=== PATIENT | female | born 1955 | race African-American/Black ===

== ENCOUNTER 2016-07-22 10:08 | Outpatient (CLI) | payer MEDICARE, MEDICAID ==
[2016-07-22 10:34] LABS: Hemoglobin A1c 6.3 % (4.0-6.0)
[2016-07-22 10:50] LABS: ALT (SGPT) 13 U/L (0-55); AST (SGOT) 23 U/L (5-34); Albumin 4.3 g/dL (3.4-4.8); Alkaline Phosphatase 90 U/L (40-150); Anion Gap 16 mmol/L (10-20); BUN (Urea Nitrogen) 16 mg/dL (9.8-20.1); Bilirubin, Total 0.6 mg/dL (0.2-1.2); Calc. Creatinine Clearance 0 mL/min (70-130); Calcium 10.2 mg/dL (7.8-10.44); Carbon Dioxide 29 mmol/L (23-31); Cardiac Risk 3.1 (Less than 4.5); Chloride 100 mmol/L (98-107); Cholesterol 162 mg/dL (< 200 Desired); Estimated GFR-MDRD 68; Globulin 3.2 g/dL (2.4-3.5); Glucose 104 mg/dL (80-115); HDL Cholesterol 53 mg/dL (>60 Neg Risk); LDL Cholesterol, Calculated 88 mg/dL; Potassium 3.9 mmol/L (3.5-5.1); Protein, Total 7.5 g/dL (5.8-8.1); Sodium 141 mmol/L (136-145); Triglycerides 104 mg/dL (Less than 150)
== END 2016-07-22 10:09 | disposition home or self-care (01) ==
LOC: MADLABBHPM 10:08
PROVIDERS: ATTEND Family Medicine
DX: E11.9 Type 2 diabetes mellitus without complications (principal); I10 Essential (primary) hypertension
CPT/HCPCS: 36415; 80053; 80061; 83036

== ENCOUNTER 2016-08-16 12:50 | Emergency (ER) | payer MEDICARE, MEDICAID ==
--- NOTE | 2016-08-16 14:24 | RAD ---
FRONTAL RADIOGRAPH CHEST 08/16/2016 COMPARISON: 06/30/2016 and prior. HISTORY: Chest pain for 2 weeks. 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 Question prior surgical change involving the first rib on the right . There is no pneumothorax or pleural fluid and no focal consolidation or alveolar edema. Heart an d mediastinal contours are stable. IMPRESSION: The inferior aspect of the first rib laterally appears truncated as above. This may be on the basis of prior surgical change or projection. Clinical correlation required. No focal consolidation or alveolar edema. POS: ABDIRAHMAN
[2016-08-16 14:27] LABS: #Basophils 0.1 thou/uL (0.0-0.2); #Eosinphils 0.4 thou/uL (0.0-0.7); #Lymphocytes 2.7 thou/uL (1.20-3.40); #Monocytes 0.7 thou/uL (0.11-0.59); #Neutrophils 5.2 thou/uL (1.40-6.50); %Basophils 1.1 % (0.0-1.0); %Eosinophils 4.5 % (0.0-10.0); %Lymphocytes 29.9 % (21.0-51.0); %Neutrophils 56.6 % (42.0-75.0); Hemoglobin 10.9 g/dL (12.0-16.0); MDiff Complete? YES; Mean Corpuscular HGB CONC 30.8 g/dL (32.0-36.0); Mean Corpuscular Hemoglobin 24.9 pg (27.0-31.0); Mean Corpuscular Volume 80.7 fl (81.0-99.0); Mean Platelet Volume 6.9 fL (7.4-10.4); Microcytosis SLIGHT = 6-15 cells (100X) (0-5/hpf); PLT Morphology Comment Appears Adequate; Platelet Count 333 thou/uL (130-400); RBC Distribution Width 14.4 % (11.5-14.5); Red Blood Cell (RBC) Count 4.39 mill/uL (4.20-5.40); White Blood Cell (WBC) Count 9.1 thou/uL (4.8-10.8)
[2016-08-16 14:34] LABS: ALT (SGPT) 11 U/L (0-55); AST (SGOT) 19 U/L (5-34); Albumin 4.2 g/dL (3.4-4.8); Alkaline Phosphatase 84 U/L (40-150); Anion Gap 15 mmol/L (10-20); BUN (Urea Nitrogen) 17 mg/dL (9.8-20.1); Bilirubin, Total 0.4 mg/dL (0.2-1.2); Calc. Creatinine Clearance 0 mL/min (70-130); Calcium 10.3 mg/dL (7.8-10.44); Carbon Dioxide 30 mmol/L (23-31); Chloride 101 mmol/L (98-107); Estimated GFR-MDRD 60; Globulin 3.1 g/dL (2.4-3.5); Glucose 86 mg/dL (80-115); Potassium 3.8 mmol/L (3.5-5.1); Protein, Total 7.3 g/dL (5.8-8.1); Sodium 142 mmol/L (136-145)
--- NOTE | 2016-08-16 17:29 | ERRECORD ---
[facility] EMERGENCY RECORD HPI CHEST PAIN (15:12 ALMO) CHIEF COMPLAINT: Patient presents for evaluation of chest pain, that was present but has now resolved. HISTORIAN: History provided by patient. LOCATION: Symptoms are localized, most severe in the left lower chest, No radiation of pain. QUALITY: Described as similar to previous episodes, tightness, aching. SEVERITY: Maximum severity of symptoms mild, Currently there are no symptoms. TIME COURSE: Gradual onset of symptoms, Symptoms have resolved. ASSOCIATED WITH: No associated chills, Associated with nausea, Associated with shortness of breath. EXACERBATED BY: Patient's condition exacerbated by nothing. RELIEVED BY: Patient's condition relieved by nothing. RISK FACTORS: Coronary artery disease risk factors, include high cholesterol, include hypertension. HEART SCORE: Patients history is Moderately Suspicious (1), Patients ECG has Non specific repolarisation disturbance/LBTB/PM (1), Patients age is greater than 45 and less than 65 (1), Patient has 1 or 2 risk factors (1), Patients Troponin is equal to or less than 1 times the normal limit (0), Total 4. ROS (15:20 ALMO) CONSTITUTIONAL: Historian denies chills. CARDIOVASCULAR: Historian reports chest pain, denies syncope, reports palpitations. RESPIRATORY: Historian reports shortness of breath. GI: Historian reports melena, reports nausea. SKIN: Negative skin review of systems. NEUROLOGIC: Historian denies headache. NOTES: All systems reviewed, negative except as described above. PAST MEDICAL HISTORY (TueAug 16, 2016 12:56 JPER) MEDICAL HISTORY: Notes: VERIFIED 08-16-16, Past medical history includes history of diabetes, Type II, Past medical history includes history of hyperlipidemia, Past medical history includes history of hypertension, Past medical history includes pulmonary disease, chronic obstructive pulmonary disease, possible, ASTHMA. FEMALE SURGICAL HISTORY: VERIFIED 08-16-16, LUMBAR SURGERY, ARM SURGERY, CYST REMOVAL. PSYCHIATRIC HISTORY: Notes: DENIES, Notes: none. SOCIAL HISTORY: Social History includes VERIFIED 08-16-16, Patient denies alcohol use, Patient denies drug use, Patient is a former tobacco user, smoked cigarettes, Patient quit smoking less than 10 years ago. &a-1R&a+25V*p+0X*l5761O*c202B*c15G*c2P*p-0X&a-25V&a+1R Name: Elisa Astudillo : 1955 F61 MedRec: [id number] AcctNum: [id number] Prepared: TueAug 16, 2016 17:27 by Interface Page 1 of 3 pMD [facility] EMERGENCY RECORD KNOWN ALLERGIES STEVEN Inhibitors (Unconfirmed) acetaminophen (Unconfirmed) Darvocet-N 100 (Unconfirmed) Demerol: - Entered brand: Demerol Tab -- Entered brand: Demerol Tab -- Entered brand: Demerol Tab Diovan lisinopril meperidine HCl (Unconfirmed) propoxyphene napsylate (Unconfirmed) valsartan (Unconfirmed) CURRENT MEDICATIONS No recorded medications VITAL SIGNS VITAL SIGNS: BP: 126/67, Pulse: 76, Resp: 17, Temp: 98.5 (Tympanic), O2 sat: 96 on Room Air, Time: 08/16/2016 12:55. (12:55 JPER) BP: 148/69, Pulse: 73, Resp: 18, Temp: 98.5 (Tympanic), O2 sat: 98 on Room Air, Time: 08/16/2016 13:30. (13:30 JPER) BP: 124/43, Pulse: 70, Resp: 16, Temp: 98.5 (Tympanic), O2 sat: 98 on Room Air, Time: 08/16/2016 14:00. (14:00 JPER) BP: 124/47, Pulse: 54, Resp: 16, O2 sat: 100 on Room Air, Time: 08/16/2016 14:30. (14:30 JPER) BP: 147/48, Pulse: 53, Resp: 18, Temp: 98.6 (Tympanic), O2 sat: 100 on Room Air, Time: 08/16/2016 15:00. (15:00 JPER) BP: 126/56, Pulse: 66, Resp: 16, O2 sat: 100 on Room Air, Time: 08/16/2016 15:30. (15:30 JPER) BP: 153/41, Pulse: 68, Resp: 18, O2 sat: 100 on Room Air, Time: 08/16/2016 16:00. (16:00 JPER) BP: 139/43, Pulse: 66, Resp: 18, Temp: 98.6 (Tympanic), O2 sat: 100 on Room Air, Time: 08/16/2016 16:30. (16:30 JPER) BP: 131/56, Pulse: 70, Resp: 16, Temp: 98.6 (Tympanic), O2 sat: 100 on Room Air, Time: 08/16/2016 17:00. (17:00 JPER) PHYSICAL EXAM (15:24 ALMDion) CONSTITUTIONAL: Vital Signs Reviewed. HEAD: Head exam included findings of head atraumatic, normocephalic. EYES: Pupils equally round and reactive to light, Extraocular muscles intact. NECK: Neck exam normal, no carotid bruits, no jugular venous distention. RESPIRATORY CHEST: Respiratory exam included findings of no respiratory distress, Breath sounds clear, Tenderness, moderate, Palpation of chest reproduces symptoms, L CCC 2nd-5th. CARDIOVASCULAR: Heart rate regular rate and rhythm, Heart sounds &a-1R&a+25V*p+0X*i2162B*c202B*c15G*c2P*p-0X&a-25V&a+1R Name: Dilia Astudilloronak Pimentel : 1955 F61 MedRec: [id number] AcctNum: [id number] Prepared: TueAug 16, 2016 17:27 by Interface Page 2 of 3 pMD [facility] EMERGENCY RECORD normal, no murmurs. ABDOMEN FEMALE: Abdominal exam included findings of abdomen nontender, Bowel sounds normal, Liver normal, Spleen normal. BACK: Back exam included findings of normal inspection, range of motion normal. PSYCHIATRIC: Psychiatric exam included findings of patient oriented to person place and time, Normal affect, Judgment normal, Insight normal. PROBLEM LIST No recorded problems DIAGNOSIS (17:24 JPER) FINAL: PRIMARY: CP R/O OK. PRESCRIPTION No recorded prescriptions DISPOSITION (17:24 JPER) PATIENT: Disposition Type: Transfer, Disposition: Transfer to [facility], Patient left the department. Pool: OLIMPIA=MD Jama, Andres JPER=ALAINA Dey, Maia &a-1R&a+25V*p+0X*q0941C*c202B*c15G*c2P*p-0X&a-25V&a+1R Name: Elisa Astudillo : 1955 F61 MedRec: [id number] AcctNum: [id number] Prepared: Gustavo Aug 16, 2016 17:27 by Interface Page 3 of 3 pMD MTDD
--- NOTE | 2016-08-16 17:34 | PICIS ---
[facility] EMERGENCY RECORD COMMUNICATIONS (16:04 AWAT) COMMUNICATIONS: Notes: DR TREVINO AT [facility] ER IN [place] ACCEPTS PT FOR TRANSFER AT THIS TIME. TRIAGE (TueAug 16, 2016 12:56 JPER) PATIENT: NAME: Elisa Astudillo, AGE: 61, GENDER: female, : Tue1955, TIME OF GREET: TueAug 16, 2016 12:51, PREFERRED LANGUAGE: Lithuanian, RACE: Black or , ETHNICITY: Not or , ECODE BILLING MAP: [facility], SSN: [id number], Zip Code: [address], KG WEIGHT: 74.84, PHONE: , , , PERSON ID: [id number], PCP: MD BELL IMELDA. (TueAug 16, 2016 12:56 JPER) COMPLAINT: CHEST PAINS. (TueAug 16, 2016 12:56 JPER) ADMISSION: URGENCY: 3 Urgent, ADMISSION SOURCE: Home, TRANSPORT: Walk-in, BED: TRIAGE. (TueAug 16, 2016 12:56 JPER) ASSESSMENT: Assessment: C/O EPISODES OF CP X 2 WEEKS. (TueAug 16, 2016 12:56 JPER) PAIN: Location NO PAIN AT THIS TIME. (TueAug 16, 2016 12:56 JPER) SIRS SCORING: Heart Rate 55-109 (0), Temp range 96.8-101.1 (0), respiratory rate 12-24 (0), Mental Status altered: no (0). (TueAug 16, 2016 12:56 JPER) TRIAGE SCREENING: Patient denies suicidal ideation, Patient denies presence of domestic violence. (TueAug 16, 2016 12:56 JPER) PROVIDERS: TRIAGE NURSE: Maia Dey RN. (TueAug 16, 2016 12:56 JPER) VITAL SIGNS: BP 126/67, Pulse 76, Resp 17, Temp 98.5, (Tympanic), O2 Sat 96, on Room Air, Time 08/16/2016 12:55. (12:55 JPER) PREVIOUS VISIT ALLERGIES: Darvocet-N 100, Demerol, Diovan, lisinopril. (TueAug 16, 2016 12:56 JPER) KNOWN ALLERGIES STEVEN Inhibitors (Unconfirmed) acetaminophen (Unconfirmed) Darvocet-N 100 (Unconfirmed) Demerol: - Entered brand: Demerol Tab -- Entered brand: Demerol Tab -- Entered brand: Demerol Tab Diovan lisinopril meperidine HCl (Unconfirmed) propoxyphene napsylate (Unconfirmed) valsartan (Unconfirmed) CURRENT MEDICATIONS No recorded medications VITAL SIGNS VITAL SIGNS: BP: 126/67, Pulse: 76, Resp: 17, Temp: 98.5 (Tympanic), O2 sat: 96 on Room Air, Time: 08/16/2016 12:55. (12:55 &a-1R&a+25V*p+0X*n5294A*c202B*c15G*c2P*p-0X&a-25V&a+1R Name: Elisa Astudillo : 1955 F61 MedRec: [id number] AcctNum: [id number] Prepared: TueAug 16, 2016 17:27 by Interface Page 1 of 7 pMD [facility] EMERGENCY RECORD JPER) BP: 148/69, Pulse: 73, Resp: 18, Temp: 98.5 (Tympanic), O2 sat: 98 on Room Air, Time: 08/16/2016 13:30. (13:30 JPER) BP: 124/43, Pulse: 70, Resp: 16, Temp: 98.5 (Tympanic), O2 sat: 98 on Room Air, Time: 08/16/2016 14:00. (14:00 JPER) BP: 124/47, Pulse: 54, Resp: 16, O2 sat: 100 on Room Air, Time: 08/16/2016 14:30. (14:30 JPER) BP: 147/48, Pulse: 53, Resp: 18, Temp: 98.6 (Tympanic), O2 sat: 100 on Room Air, Time: 08/16/2016 15:00. (15:00 JPER) BP: 126/56, Pulse: 66, Resp: 16, O2 sat: 100 on Room Air, Time: 08/16/2016 15:30. (15:30 JPER) BP: 153/41, Pulse: 68, Resp: 18, O2 sat: 100 on Room Air, Time: 08/16/2016 16:00. (16:00 JPER) BP: 139/43, Pulse: 66, Resp: 18, Temp: 98.6 (Tympanic), O2 sat: 100 on Room Air, Time: 08/16/2016 16:30. (16:30 JPER) BP: 131/56, Pulse: 70, Resp: 16, Temp: 98.6 (Tympanic), O2 sat: 100 on Room Air, Time: 08/16/2016 17:00. (17:00 JPER) NURSING ASSESSMENT: CARDIOVASCULAR (13:03 JPER) CONSTITUTIONAL: Patient arrives ambulatory, Gait steady, History obtained from patient, Patient appears comfortable, Patient cooperative, Patient alert, Oriented to person, place and time, Skin warm, Skin dry, Skin normal in color, Mucous membranes pink, Mucous membranes moist, Patient is well-groomed, Patient complains of EPISODES OF CP. PAIN: aching pain, midsternal, PAIN FREE AT THIS TIME. CARDIOVASCULAR: Cardiovascular assessment findings include heart rate normal, Left radial pulse +3(easily palpated, considered normal), Right radial pulse +3(easily palpated, considered normal). RESPIRATORY/CHEST: Lungs auscultated, Breath sounds diminished, to bilateral upper lobes, to bilateral lower lobes, Respiratory assessment findings include respiratory effort easy, Respirations regular, Conversing normally, Neck and chest exam findings include trachea midline, Chest expansion equal, Chest movement symmetrical. NOTES: Emotional support needed and given. NURSING PROCEDURE: ASSISTED MD (13:35 MDEB) ASSISTED MD: Assisted MD with simple procedure, HEMOCULT. NURSING PROCEDURE: IV (17:22 JPER) PATIENT IDENITIFIER: Patient's identity verified by patient stating name, Patient's identity verified by hospital ID bracelet. IV SITE 1: IV established, to the left antecubital, using a 20 gauge catheter, in one attempt, IV site prepped with CHLOROPREP. NURSING PROCEDURE: NURSE NOTES NURSES NOTES: Assistance offered to patient, Patient is awaiting disposition, Patient re-positioned to right side lying position, &a-1R&a+25V*p+0X*l8183Y*c202B*c15G*c2P*p-0X&a-25V&a+1R Name: Elisa Astudillo : 1955 F61 MedRec: [id number] AcctNum: [id number] Prepared: TueAug 16, 2016 17:27 by Interface Page 2 of 7 pMD [facility] EMERGENCY RECORD Notes: PT CONT PREVIOUSLY; CONT WITHOUT PAIN AT THIS TIME; PT IN NAD; VSS. (14:00 JPER) Notes: WAITING DISPOSITION. (15:00 JPER) Notes: CONT PREVIOUSLY; NAD. (16:43 JPER) NURSING PROCEDURE: TRANSFER (17:14 JPER) TRANSFER: Reason for transfer need for specialized care, Diagnosis: CP R/O TN, Accepting institution: [facility], Accepting physician: BELINDA, Referring physician: JAMA, Report called to receiving facility, PRABHA RN, Provided opportunity to answer questions, Summary of Care printed, Copy of patient record prepared for receiving facility, Copy of diagnostic studies, Status of patient's valuables documented on chart, Medication reconciliation form prepared and sent to receiving facility, Patient consent for transfer signed, Patient given appropriate sedation for safe transport. BELONGINGS: Belongings remain with patient, Valuables remain with patient. EQUIPMENT WITH PATIENT: Equipment with patient at time of transfer radiation monitor, Saline lock intact and patent at time of transfer. NOTES: Emotional support needed and given, Patient tolerated procedure well. ORDER DETAILS Order Name: CBC with Differential, Status: Active, Time: 13:46 08/16/2016, User: OLIMPIA, - Ordered for: MD Yun Alberto, - Entered by: MD Yun Alberto - TueAug 16, 2016 13:46, - Quantity: 1, Order Name: Comprehensive Metabolic Panel, Status: Active, Time: 13:46 08/16/2016, User: OLIMPIA, - Ordered for: MD Yun Alberto, - Entered by: MD Yun Alberto - TueAug 16, 2016 13:46, - Quantity: 1, Order Name: Troponin - I, Status: Active, Time: 13:47 08/16/2016, User: OLIMPIA, - Ordered for: MD Yun Alberto, - Entered by: MD Yun Alberto - TueAug 16, 2016 13:47, - Quantity: 1, Order Name: XR Chest 1 View Portable, Status: Active, Time: 13:46 08/16/2016, User: OLIMPIA, - Ordered for: MD Yun Alberto, - Entered by: MD Yun Alberto - TueAug 16, 2016 13:46, - Quantity: 1. HPI CHEST PAIN (15:12 ALMO) CHIEF COMPLAINT: Patient presents for evaluation of chest pain, that was present but has now resolved. &a-1R&a+25V*p+0X*k1077F*c202B*c15G*c2P*p-0X&a-25V&a+1R Name: Elisa Astudillo : 1955 F61 MedRec: [id number] AcctNum: [id number] Prepared: TueAug 16, 2016 17:27 by Interface Page 3 of 7 pMD [facility] EMERGENCY RECORD HISTORIAN: History provided by patient. LOCATION: Symptoms are localized, most severe in the left lower chest, No radiation of pain. QUALITY: Described as similar to previous episodes, tightness, aching. SEVERITY: Maximum severity of symptoms mild, Currently there are no symptoms. TIME COURSE: Gradual onset of symptoms, Symptoms have resolved. ASSOCIATED WITH: No associated chills, Associated with nausea, Associated with shortness of breath. EXACERBATED BY: Patient's condition exacerbated by nothing. RELIEVED BY: Patient's condition relieved by nothing. RISK FACTORS: Coronary artery disease risk factors, include high cholesterol, include hypertension. HEART SCORE: Patients history is Moderately Suspicious (1), Patients ECG has Non specific repolarisation disturbance/LBTB/PM (1), Patients age is greater than 45 and less than 65 (1), Patient has 1 or 2 risk factors (1), Patients Troponin is equal to or less than 1 times the normal limit (0), Total 4. ROS (15:20 ALMO) CONSTITUTIONAL: Historian denies chills. CARDIOVASCULAR: Historian reports chest pain, denies syncope, reports palpitations. RESPIRATORY: Historian reports shortness of breath. GI: Historian reports melena, reports nausea. SKIN: Negative skin review of systems. NEUROLOGIC: Historian denies headache. NOTES: All systems reviewed, negative except as described above. PAST MEDICAL HISTORY (TueAug 16, 2016 12:56 JPER) MEDICAL HISTORY: Notes: VERIFIED 08-16-16, Past medical history includes history of diabetes, Type II, Past medical history includes history of hyperlipidemia, Past medical history includes history of hypertension, Past medical history includes pulmonary disease, chronic obstructive pulmonary disease, possible, ASTHMA. FEMALE SURGICAL HISTORY: VERIFIED 08-16-16, LUMBAR SURGERY, ARM SURGERY, CYST REMOVAL. PSYCHIATRIC HISTORY: Notes: DENIES, Notes: none. SOCIAL HISTORY: Social History includes VERIFIED 08-16-16, Patient denies alcohol use, Patient denies drug use, Patient is a former tobacco user, smoked cigarettes, Patient quit smoking less than 10 years ago. PHYSICAL EXAM (15:24 ALMO) CONSTITUTIONAL: Vital Signs Reviewed. &a-1R&a+25V*p+0X*g1701L*c202B*c15G*c2P*p-0X&a-25V&a+1R Name: Elisa Astudillo : 1955 F61 MedRec: [id number] AcctNum: [id number] Prepared: TueAug 16, 2016 17:27 by Interface Page 4 of 7 D [facility] EMERGENCY RECORD HEAD: Head exam included findings of head atraumatic, normocephalic. EYES: Pupils equally round and reactive to light, Extraocular muscles intact. NECK: Neck exam normal, no carotid bruits, no jugular venous distention. RESPIRATORY CHEST: Respiratory exam included findings of no respiratory distress, Breath sounds clear, Tenderness, moderate, Palpation of chest reproduces symptoms, L CCC 2nd-5th. CARDIOVASCULAR: Heart rate regular rate and rhythm, Heart sounds normal, no murmurs. ABDOMEN FEMALE: Abdominal exam included findings of abdomen nontender, Bowel sounds normal, Liver normal, Spleen normal. BACK: Back exam included findings of normal inspection, range of motion normal. PSYCHIATRIC: Psychiatric exam included findings of patient oriented to person place and time, Normal affect, Judgment normal, Insight normal. EVENTS TRANSFER: Triage to Emergency Triage. (12:56 JPER) Emergency Triage to Main ED -01. (12:57 JPER) Removed from Emergency Main ED -01. (17:24 JPER) PROBLEM LIST No recorded problems DIAGNOSIS (17:24 JPER) FINAL: PRIMARY: CP R/O TN. DISPOSITION (17:24 JPER) PATIENT: Disposition Type: Transfer, Disposition: Transfer to [facility], Patient left the department. PRESCRIPTION No recorded prescriptions IMAGING *EKG: Image captured from scanner. (14:33 JPAR) *MEMORANDUM OF TRANSFER: Image captured from scanner. (16:16 AWAT) EMS TRANSPORT ORDERS: Image captured from scanner. (16:16 AWAT) CONSENTS: Image captured from scanner. (16:16 AWAT) SBARU: Image captured from scanner. (17:21 JPER) RESULTS (16:19 AWAT) LABORATORY: Troponin - I Collection DT: TueAug 16, 2016 14:12, Troponin I 0.015 ng/mL, Range (< 0.028), Reference Range &a-1R&a+25V*p+0X*z0432Q*c202B*c15G*c2P*p-0X&a-25V&a+1R Name: Elisa Astudillo : 1955 F61 MedRec: [id number] AcctNum: [id number] Prepared: TueAug 16, 2016 17:27 by Interface Page 5 of 7 pMD [facility] EMERGENCY RECORD , 0.00 - 0.028 ng/mL Negative 0.029 - 0.29 ng/mL , Indeterminate Greater or Equal to 0.3 ng/mL Strongly suggests TN , . Comprehensive Metabolic Panel Collection DT: TueAug 16, 2016 14:12, Sodium 142 mmol/L, Range (136-145), Potassium 3.8 mmol/L, Range (3.5-5.1), Chloride 101 mmol/L, Range (98-107), Carbon Dioxide 30 mmol/L, Range (23-31), Anion Gap 15 mmol/L, Range (10-20), BUN (Urea Nitrogen) 17 mg/dL, Range (9.8-20.1), *Creatinine 1.12 - H mg/dL, Range (0.6-1.1), Estimated GFR-MDRD 60 , Reference Range for Estimated GFR: Greater than 90, mL/min/1.73 m2 NOTE: The MDRD equation has not been validated for use, with the elderly (over 70 years of age), women, patients with, serious comorbid condition or persons with extremes of body size, muscle, mass, or nutritional status. , Glucose 86 mg/dL, Range (80-115), Calcium 10.3 mg/dL, Range (7.8-10.44), Bilirubin, Total 0.4 mg/dL, Range (0.2-1.2), Protein, Total 7.3 g/dL, Range (5.8-8.1), NOTE: Plasma values are generally 0.3 to 0.5 g/dL higher than serum values, due to the presence of fibrinogen. , Albumin 4.2 g/dL, Range (3.4-4.8), Globulin 3.1 g/dL, Range (2.4-3.5), Alb/Glob Ratio 1.4 g/dL, Range (1.2-2.2), Alkaline Phosphatase 84 U/L, Range (40-150), AST (SGOT) 19 U/L, Range (5-34), ALT (SGPT) 11 U/L, Range (0-55). CBC with Differential Collection DT: TueAug 16, 2016 14:12, White Blood Cell (WBC) Count 9.1 thou/uL, Range (4.8-10.8), Red Blood Cell (RBC) Count 4.39 mill/uL, Range (4.20-5.40), *Hemoglobin 10.9 - L g/dL, Range (12.0-16.0), *Hematocrit 35.4 - L %, Range (36.0-47.0), *Mean Corpuscular Volume 80.7 - L fl, Range (81.0-99.0), *Mean Corpuscular Hemoglobin 24.9 - L pg, Range (27.0-31.0), *Mean Corpuscular HGB CONC 30.8 - L g/dL, Range (32.0-36.0), RBC Distribution Width 14.4 %, Range (11.5-14.5), Platelet Count 333 thou/uL, Range (130-400), *Mean Platelet Volume 6.9 - L fL, Range (7.4-10.4), %Neutrophils 56.6 %, Range (42.0-75.0), %Lymphocytes 29.9 %, Range (21.0-51.0), %Monocytes 8.0 %, Range (0.0-10.0), %Eosinophils 4.5 %, Range (0.0-10.0), *%Basophils 1.1 - H %, Range (0.0-1.0), &a-1R&a+25V*p+0X*a4776X*c202B*c15G*c2P*p-0X&a-25V&a+1R Name: Elisa Astudillo : 1955 F61 MedRec: [id number] AcctNum: [id number] Prepared: TueAug 16, 2016 17:27 by Interface Page 6 of 7 pMD [facility] EMERGENCY RECORD #Neutrophils 5.2 thou/uL, Range (1.40-6.50), #Lymphocytes 2.7 thou/uL, Range (1.20-3.40), *#Monocytes 0.7 - H thou/uL, Range (0.11-0.59), #Eosinphils 0.4 thou/uL, Range (0.0-0.7), #Basophils 0.1 thou/uL, Range (0.0-0.2), Microcytosis SLIGHT = 6-15 cells (100X), Range (0-5/hpf), PLT Morphology Comment Appears Adequate . Pool: OLIMPIA=MD Jama, Andres PACHECO=ALAINA Escalera, Martin HINDS=MELI De La Cruz Julia JPER=ALAINA Dey, Maia SOTOMAYOR=ALAINA Castillo, Eileen &a-1R&a+25V*p+0X*u0415C*c202B*c15G*c2P*p-0X&a-25V&a+1R Name: Elisa Astudillo : 1955 F61 MedRec: [id number] AcctNum: [id number] Prepared: TueAug 16, 2016 17:27 by Interface Page 7 of 7 pMD MTDD
== END 2016-08-16 17:13 | disposition short-term general hospital (02) ==
LOC: MADERS 12:50
DX: R07.9 Chest pain, unspecified (principal); E11.9 Type 2 diabetes mellitus without complications; E78.5 Hyperlipidemia, unspecified; I10 Essential (primary) hypertension; J44.9 Chronic obstructive pulmonary disease, unspecified; Z87.891 Personal history of nicotine dependence
CPT/HCPCS: 36415; 71010; 80053; 84484; 85025; 99285

== ENCOUNTER 2016-11-22 10:27 | Outpatient (CLI) | payer MEDICARE, MEDICAID ==
[2016-11-22 11:02] LABS: #Basophils 0.1 thou/uL (0.0-0.2); #Eosinphils 0.4 thou/uL (0.0-0.7); #Lymphocytes 2.3 thou/uL (1.20-3.40); #Monocytes 0.6 thou/uL (0.11-0.59); #Neutrophils 5.2 thou/uL (1.40-6.50); %Basophils 1.2 % (0.0-1.0); %Eosinophils 4.3 % (0.0-10.0); %Lymphocytes 27.2 % (21.0-51.0); %Monocytes 7.1 % (0.0-10.0); %Neutrophils 60.2 % (42.0-75.0); Hemoglobin 12.5 g/dL (12.0-16.0); Mean Corpuscular HGB CONC 31.3 g/dL (32.0-36.0); Mean Corpuscular Hemoglobin 26.2 pg (27.0-31.0); Mean Corpuscular Volume 83.7 fl (81.0-99.0); Mean Platelet Volume 7.4 fL (7.4-10.4); Platelet Count 236 thou/uL (130-400); RBC Distribution Width 17.9 % (11.5-14.5); Red Blood Cell (RBC) Count 4.79 mill/uL (4.20-5.40); White Blood Cell (WBC) Count 8.6 thou/uL (4.8-10.8)
[2016-11-22 11:03] LABS: Hemoglobin A1c 6.3 % (4.0-6.0)
[2016-11-22 11:13] LABS: ALT (SGPT) 11 U/L (8-55); AST (SGOT) 17 U/L (5-34); Albumin 4.1 g/dL (3.4-4.8); Alkaline Phosphatase 93 U/L (40-150); Anion Gap 16 mmol/L (10-20); BUN (Urea Nitrogen) 18 mg/dL (9.8-20.1); Bilirubin, Total 0.3 mg/dL (0.2-1.2); Calc. Creatinine Clearance 0 mL/min (70-130); Carbon Dioxide 27 mmol/L (23-31); Chloride 101 mmol/L (98-107); Estimated GFR-MDRD 76; Globulin 3.2 g/dL (2.4-3.5); Glucose 104 mg/dL (80-115); Protein, Total 7.3 g/dL (5.8-8.1); Sodium 140 mmol/L (136-145)
[2016-11-22 17:54] LABS: Iron 44 ug/dL (50-170)
== END 2016-11-22 10:28 | disposition home or self-care (01) ==
LOC: MADLABBHPM 10:27
PROVIDERS: ATTEND Family Medicine
DX: E11.9 Type 2 diabetes mellitus without complications (principal); D64.9 Anemia, unspecified; N18.2 Chronic kidney disease, stage 2 (mild)
CPT/HCPCS: 36415; 80053; 82728; 83036; 83540; 85025

== ENCOUNTER 2016-11-23 11:54 | Outpatient (CLI) | payer MEDICARE, MEDICAID ==
[2016-11-23] MEDS ORDERED: Iopamidol 370 76% 100 ML VIAL ONE (14:00)
--- NOTE | 2016-11-23 15:57 | CT ---
CT OF THE ABDOMEN AND PELVIS WITH IV CONTRAST 11/23/16 PROVIDED CLINICAL HISTORY: Abdominal distention. TECHNIQUE: CT data was acquired through the abdomen and pelvis after the administration of IV and enteric contr ast material. FINDINGS: No comparisons. The visualized lung bases are free of significant opacity. There is a 2.1 cm right adrenal mass present. The Hounsfield units of which are not compatible with a lipid rich adrenal adenoma. The liver, spleen, pancreas, kidneys and left adrenal gland appear normal. Vascular calcifications are noted involving the abdominal aorta and its branches. There is a 2.5 cm maximal dimension ectasia of the intrarenal abdominal aorta. There is sigmoid colonic diverticulosis. There is a small amount of nonspecific free pelvic fluid. N o overt inflammatory fat stranding is seen. heterogeneous soft tissue density with internal calcific ations noted involving the low pelvis presumably reflecting fibroid changes of the uterus, not optim ally evaluated via CT. There is no bowel obstruction evident. There is no free intraperitoneal air or lymph node enlargemen t. The osseous structures demonstrate no concerning osteoblastic or osteolytic lesions. Postoperative changes are seen involving the pelvis and lower lumbar spine. IMPRESSION: 1. Indeterminate 2.1 cm right adrenal lesion. Correlation with a CT examination of the abdomen with and without IV contrast utilizing adrenal adenoma washout protocol is recommended for further e valuation. 2. Sigmoid colonic diverticulosis with a small amount of free pelvic fluid that could reflect c hanges of mild diverticulitis. The etiology and significance of this fluid is not completely certain however. 3. Atherosclerotic vascular calcification and ectasia of the infrarenal abdominal aorta as desc ribed above. POS: OFF
== END 2016-11-23 11:55 | disposition home or self-care (01) ==
LOC: MADCT 11:54
PROVIDERS: ATTEND Family Medicine
DX: R14.0 Abdominal distension (gaseous) (principal); I77.811 Abdominal aortic ectasia; K57.30 Diverticulosis of large intestine without perforation or abscess without bleeding
CPT/HCPCS: 74177

== ENCOUNTER 2017-01-03 09:42 | Outpatient (CLI) | payer MEDICARE, MEDICAID ==
[2017-01-03 10:23] LABS: #Basophils 0.2 thou/uL (0.0-0.2); #Eosinphils 0.5 thou/uL (0.0-0.7); #Monocytes 0.7 thou/uL (0.11-0.59); #Neutrophils 5.4 thou/uL (1.40-6.50); %Basophils 1.5 % (0.0-1.0); %Eosinophils 4.2 % (0.0-10.0); %Lymphocytes 42.3 % (21.0-51.0); %Monocytes 6.3 % (0.0-10.0); %Neutrophils 45.7 % (42.0-75.0); Hemoglobin 14.2 g/dL (12.0-16.0); Mean Corpuscular HGB CONC 31.7 g/dL (32.0-36.0); Mean Corpuscular Hemoglobin 26.9 pg (27.0-31.0); Mean Platelet Volume 7.4 fL (7.4-10.4); Platelet Count 276 thou/uL (130-400); RBC Distribution Width 16.1 % (11.5-14.5); Red Blood Cell (RBC) Count 5.29 mill/uL (4.20-5.40); White Blood Cell (WBC) Count 11.9 thou/uL (4.8-10.8)
[2017-01-03 10:27] LABS: Hemoglobin A1c 6.3 % (4.0-6.0)
[2017-01-03 10:31] LABS: ALT (SGPT) 12 U/L (8-55); AST (SGOT) 22 U/L (5-34); Albumin 4.4 g/dL (3.4-4.8); Alkaline Phosphatase 94 U/L (40-150); Anion Gap 17 mmol/L (10-20); BUN (Urea Nitrogen) 13 mg/dL (9.8-20.1); Bilirubin, Total 0.5 mg/dL (0.2-1.2); Calc. Creatinine Clearance 0 mL/min (70-130); Calcium 9.9 mg/dL (7.8-10.44); Carbon Dioxide 25 mmol/L (23-31); Chloride 102 mmol/L (98-107); Estimated GFR-MDRD 63; Globulin 3.8 g/dL (2.4-3.5); Glucose 113 mg/dL (80-115); Potassium 3.7 mmol/L (3.5-5.1); Protein, Total 8.2 g/dL (6.0-8.3); Sodium 140 mmol/L (136-145)
--- NOTE | 2017-01-03 11:42 | ULT ---
COMPLETE ABDOMINAL ULTRASOUND: COMPARISON: None. HISTORY: Abdominal pain and cramping after eating for 1 month. TECHNIQUE: Multiplanar, galeano scale, and color Doppler images were obtained in a complete abdominal ultrasound. FINDINGS: The liver is normal in echogenicity without focal lesions or intrahepatic ductal dilatation. The ga llbladder is normal without stones, sludge, gallbladder wall thickening, or pericholecystic fluid. The common bile duct is normal measuring 3 mm. The aorta and inferior vena cava are normal in caliber. The visualized portions of the pancreas are unremarkable. The spleen is normal in echogenicity without focal lesions and measures 6.9 cm in le ngth. Both kidneys are normal in echogenicity without hydronephrosis or calculi and measure 11.2 and 9.4 c m in length on the right and left, respectively. IMPRESSION: Unremarkable exam. POS: RASHMI
[2017-01-03 17:42] LABS: Iron 52 ug/dL (50-170)
== END 2017-01-03 09:43 | disposition home or self-care (01) ==
LOC: MADLABBHPM 09:42
PROVIDERS: ATTEND Family Medicine
DX: E11.9 Type 2 diabetes mellitus without complications (principal); E61.1 Iron deficiency; D25.9 Leiomyoma of uterus, unspecified; E27.9 Disorder of adrenal gland, unspecified; I70.0 Atherosclerosis of aorta
CPT/HCPCS: 36415; 76700; 80053; 83036; 83540; 85025

== ENCOUNTER 2017-05-01 19:36 | Emergency (ER) | payer MEDICARE, MEDICAID ==
[2017-05-01] MEDS ORDERED: Naproxen 500 MG TAB ONE (21:11)
[2017-05-01] MEDS ORDERED: HYDROcodone/Acetaminophen 10/325 mg Tablet ONE (21:11)
[2017-05-01] MEDS ORDERED: Diazepam 5 MG TAB ONE (21:11)
--- NOTE | 2017-05-01 21:17 | RAD ---
RADIOGRAPH RIGHT LEG TIBIA AND FIBULA: History: 62-year-old female with acute right leg pain from fall. FINDINGS: No fracture of the tibia or fibula is identified. IMPRESSION: Negative. POS: RASHMI
--- NOTE | 2017-05-01 21:18 | RAD ---
RADIOGRAPH RIGHT KNEE FOUR VIEWS: History: 62-year-old female with acute traumatic right knee pain due to fall. FINDINGS: There is a small joint effusion. No fracture or dislocation. Tiny marginal osteophytes without signi ficant joint space narrowing. IMPRESSION: No fracture. POS: [facility]
--- NOTE | 2017-05-01 21:18 | RAD ---
RADIOGRAPH RIGHT HIP TWO VIEWS: History: 62-year-old female with acute traumatic right hip pain due to fall. FINDINGS: No fracture or dislocation. Femoral head contour is maintained. Hip joint space is maintained. No douglass bcapital osteophytes. IMPRESSION: Negative. POS: [facility]
--- NOTE | 2017-05-01 21:19 | RAD ---
RADIOGRAPH RIGHT SHOULDER THREE VIEWS: History: 62-year-old female with acute traumatic right shoulder pain from fall. FINDINGS: No fracture or dislocation. Moderate DJD at AC joint. Mild to moderate DJD at glenohumeral joint. IMPRESSION: 1. No fracture. 2. osteoarthrosis of right shoulder. POS: [facility]
== END 2017-05-01 21:31 | disposition home or self-care (01) ==
LOC: MADERS 19:36
DX: S40.011A Contusion of right shoulder, initial encounter (principal); S70.01XA Contusion of right hip, initial encounter; S80.01XA Contusion of right knee, initial encounter; S90.01XA Contusion of right ankle, initial encounter; E78.5 Hyperlipidemia, unspecified; E11.9 Type 2 diabetes mellitus without complications; I10 Essential (primary) hypertension; J45.909 Unspecified asthma, uncomplicated; J44.9 Chronic obstructive pulmonary disease, unspecified; Z87.891 Personal history of nicotine dependence; E78.1 Pure hyperglyceridemia; Z79.899 Other long term (current) drug therapy; Z79.84 Long term (current) use of oral hypoglycemic drugs; W19.XXXA Unspecified fall, initial encounter

== ENCOUNTER 2017-05-23 07:42 | Emergency (ER) | payer MEDICARE, MEDICAID ==
[2017-05-23] MEDS ORDERED: methylPREDNISolone Sod Succ/PF 125 MG/2 ML VIAL ONE (08:03)
[2017-05-23] MEDS ORDERED: Dexamethasone 10 MG/ML VIAL ONE (08:03)
[2017-05-23] MEDS ORDERED: diphenhydrAMINE 50 MG/ML VIAL ONE (08:03)
[2017-05-23] MEDS ORDERED: Sodium Chloride 0.9% 1,000 ML BAG ONE (08:09)
== END 2017-05-23 10:00 | disposition home or self-care (01) ==
LOC: MADERS 07:42
DX: T78.40XA Allergy, unspecified, initial encounter (principal); E11.9 Type 2 diabetes mellitus without complications; E78.2 Mixed hyperlipidemia; I10 Essential (primary) hypertension; J44.9 Chronic obstructive pulmonary disease, unspecified; Z87.891 Personal history of nicotine dependence; Z79.82 Long term (current) use of aspirin; Z79.84 Long term (current) use of oral hypoglycemic drugs; Z79.899 Other long term (current) drug therapy
CPT/HCPCS: 96374; 96375; J1100; J1200; J2930; J7050; J7620

== ENCOUNTER 2017-05-25 02:21 | Emergency (ER) | payer MEDICARE, MEDICAID ==
[2017-05-25] MEDS ORDERED: Dexamethasone 4 MG TAB ONE (02:42)
[2017-05-25] MEDS ORDERED: Famotidine 20 MG TAB ONE (02:42)
== END 2017-05-25 03:04 | disposition home or self-care (01) ==
LOC: MADERS 02:21
DX: J30.81 Allergic rhinitis due to animal (cat) (dog) hair and dander (principal); E11.9 Type 2 diabetes mellitus without complications; E78.5 Hyperlipidemia, unspecified; I10 Essential (primary) hypertension; J44.9 Chronic obstructive pulmonary disease, unspecified; Z87.891 Personal history of nicotine dependence
CPT/HCPCS: 99283; J8540

== ENCOUNTER 2017-05-28 09:03 | Emergency (ER) | payer MEDICARE, OTHER ==
[2017-05-28] MEDS ORDERED: diphenhydrAMINE 25 MG CAP ONE (09:38)
[2017-05-28] MEDS ORDERED: Dexamethasone 4 mg/ml Vial ONE (09:38)
[2017-05-28] MEDS ORDERED: Famotidine 20 MG TAB ONE (09:39)
== END 2017-05-28 11:00 | disposition home or self-care (01) ==
LOC: MADERS 09:03
DX: T78.40XA Allergy, unspecified, initial encounter (principal); E11.9 Type 2 diabetes mellitus without complications; E78.5 Hyperlipidemia, unspecified; I10 Essential (primary) hypertension; J44.9 Chronic obstructive pulmonary disease, unspecified; Z87.891 Personal history of nicotine dependence; Z79.899 Other long term (current) drug therapy
CPT/HCPCS: 99283; J1100

== ENCOUNTER 2017-08-02 15:07 | Emergency (ER) | payer MEDICARE, MEDICAID | END 2017-08-02 15:57 | disposition home or self-care (01) | LOC: MADERS 15:07 | DX: I10 Essential (primary) hypertension (principal); E11.9 Type 2 diabetes mellitus without complications; E78.5 Hyperlipidemia, unspecified; J44.9 Chronic obstructive pulmonary disease, unspecified; F17.210 Nicotine dependence, cigarettes, uncomplicated; Z79.891 Long term (current) use of opiate analgesic; Z79.82 Long term (current) use of aspirin; Z79.899 Other long term (current) drug therapy; Z79.84 Long term (current) use of oral hypoglycemic drugs | CPT/HCPCS: 99283 ==

== ENCOUNTER 2017-08-04 07:48 | Outpatient (CLI) | payer MEDICARE, OTHER ==
[2017-08-04 08:44] LABS: #Basophils 0.1 thou/uL (0.0-0.2); #Eosinphils 0.5 thou/uL (0.0-0.7); #Monocytes 0.7 thou/uL (0.11-0.59); #Neutrophils 7.3 thou/uL (1.40-6.50); %Basophils 1.1 % (0.0-1.0); %Eosinophils 3.9 % (0.0-10.0); %Monocytes 6.1 % (0.0-10.0); %Neutrophils 62.8 % (42.0-75.0); Hemoglobin 12.4 g/dL (12.0-16.0); Mean Corpuscular HGB CONC 30.8 g/dL (32.0-36.0); Mean Corpuscular Volume 87.8 fl (81.0-99.0); Mean Platelet Volume 7.8 fL (7.4-10.4); Platelet Count 299 thou/uL (130-400); RBC Distribution Width 15.3 % (11.5-14.5); White Blood Cell (WBC) Count 11.6 thou/uL (4.8-10.8)
[2017-08-04 09:05] LABS: ALT (SGPT) 9 U/L (8-55); AST (SGOT) 16 U/L (5-34); Alkaline Phosphatase 103 U/L (40-150); Anion Gap 15 mmol/L (10-20); BUN (Urea Nitrogen) 11 mg/dL (9.8-20.1); Bilirubin, Total 0.5 mg/dL (0.2-1.2); Calc. Creatinine Clearance 0 mL/min (70-130); Calcium 9.9 mg/dL (7.8-10.44); Carbon Dioxide 29 mmol/L (23-31); Chloride 102 mmol/L (98-107); Estimated GFR-MDRD 71; Globulin 3.4 g/dL (2.4-3.5); Glucose 105 mg/dL (80-115); Lipase 19 U/L (8-78); Potassium 3.7 mmol/L (3.5-5.1); Protein, Total 7.4 g/dL (6.0-8.3); Sodium 142 mmol/L (136-145)
--- NOTE | 2017-08-04 09:11 | ULT ---
ULTRASOUND ABDOMEN: HISTORY: Right upper quadrant pain for 1 month. COMPARISON: None. FINDINGS: The pancreas is unremarkable. The aorta and IVC are unremarkable. Hepatic echotexture is normal. Common bile duct is normal. The gallbladder is normal. The right kidney measures 10.2 x 3.5 x 5 cm without mass, hydronephrosis, or abnormal calcifications. IMPRESSION: Normal exam. No cholelithiasis or acute cholecystitis. POS: [facility]
== END 2017-08-04 07:49 | disposition home or self-care (01) ==
LOC: MADLABBHPM 07:48
PROVIDERS: ATTEND Family Medicine
DX: R10.13 Epigastric pain (principal); R10.11 Right upper quadrant pain; R63.0 Anorexia; E11.9 Type 2 diabetes mellitus without complications
CPT/HCPCS: 36415; 76705; 80053; 82150; 83036; 83690; 85025; 87338

== ENCOUNTER 2017-10-14 11:00 | Emergency (ER) | payer MEDICARE, MEDICAID ==
[2017-10-14] MEDS ORDERED: cloNIDine 0.1 MG TAB ONE (11:48)
[2017-10-14 12:04] LABS: #Basophils 0.1 thou/uL (0.0-0.2); #Eosinphils 0.5 thou/uL (0.0-0.7); #Lymphocytes 2.8 thou/uL (1.20-3.40); #Monocytes 0.6 thou/uL (0.11-0.59); #Neutrophils 5.7 thou/uL (1.40-6.50); %Basophils 1.3 % (0.0-1.0); %Eosinophils 5.5 % (0.0-10.0); %Lymphocytes 28.8 % (21.0-51.0); %Monocytes 6.1 % (0.0-10.0); %Neutrophils 58.4 % (42.0-75.0); Hemoglobin 11.4 g/dL (12.0-16.0); Mean Corpuscular HGB CONC 31.4 g/dL (32.0-36.0); Mean Corpuscular Volume 82.7 fl (81.0-99.0); Platelet Count 280 thou/uL (130-400); RBC Distribution Width 15.6 % (11.5-14.5); Red Blood Cell (RBC) Count 4.39 mill/uL (4.20-5.40); White Blood Cell (WBC) Count 9.8 thou/uL (4.8-10.8)
[2017-10-14 12:23] LABS: ALT (SGPT) 10 U/L (8-55); AST (SGOT) 21 U/L (5-34); Albumin 4.2 g/dL (3.4-4.8); Alkaline Phosphatase 103 U/L (40-150); Anion Gap 18 mmol/L (10-20); BUN (Urea Nitrogen) 11 mg/dL (9.8-20.1); Bilirubin, Total 0.4 mg/dL (0.2-1.2); CK (CPK) 191 U/L (29-168); Calc. Creatinine Clearance 0 mL/min (70-130); Calcium 9.9 mg/dL (7.8-10.44); Carbon Dioxide 24 mmol/L (23-31); Chloride 105 mmol/L (98-107); Estimated GFR-MDRD 68; Globulin 2.9 g/dL (2.4-3.5); Glucose 91 mg/dL (80-115); Potassium 3.8 mmol/L (3.5-5.1); Protein, Total 7.1 g/dL (6.0-8.3); Sodium 143 mmol/L (136-145)
[2017-10-14 12:24] LABS: Troponin I Less than 0.010 ng/mL (< 0.028)
== END 2017-10-14 14:27 | disposition short-term general hospital (02) ==
LOC: MADERS 11:00
DX: R00.1 Bradycardia, unspecified (principal); E11.9 Type 2 diabetes mellitus without complications; E78.5 Hyperlipidemia, unspecified; E78.2 Mixed hyperlipidemia; I10 Essential (primary) hypertension; J44.9 Chronic obstructive pulmonary disease, unspecified; F17.210 Nicotine dependence, cigarettes, uncomplicated; Z79.84 Long term (current) use of oral hypoglycemic drugs; Z79.899 Other long term (current) drug therapy
CPT/HCPCS: 80053; 82550; 82553; 83880; 84484; 85025; 93005

== ENCOUNTER 2017-11-14 10:35 | Emergency (ER) | payer MEDICARE, OTHER | END 2017-11-14 11:00 | disposition home or self-care (01) | LOC: MADERS 10:35 | DX: M79.89 Other specified soft tissue disorders (principal); R22.0 Localized swelling, mass and lump, head; E11.9 Type 2 diabetes mellitus without complications; E78.2 Mixed hyperlipidemia; I10 Essential (primary) hypertension; J44.9 Chronic obstructive pulmonary disease, unspecified; F17.210 Nicotine dependence, cigarettes, uncomplicated; Z79.84 Long term (current) use of oral hypoglycemic drugs; Z79.82 Long term (current) use of aspirin; Z79.899 Other long term (current) drug therapy | CPT/HCPCS: 99282 ==

== ENCOUNTER 2017-12-06 18:59 | Emergency (ER) | payer MEDICARE, OTHER ==
[2017-12-06] MEDS ORDERED: Morphine 10 MG/ML VIAL ONE (19:17)
[2017-12-06] MEDS ORDERED: Nitroglycerin 2% Ointment 1 INCH/1 GM Packet ONE (19:18)
[2017-12-06] MEDS ORDERED: Metoprolol Tartrate 5 MG/5 ML VIAL ONE (19:19)
[2017-12-06 19:30] LABS: #Basophils 0.1 thou/uL (0.0-0.2); #Eosinphils 0.6 thou/uL (0.0-0.7); #Lymphocytes 3.8 thou/uL (1.20-3.40); #Monocytes 0.9 thou/uL (0.11-0.59); #Neutrophils 5.2 thou/uL (1.40-6.50); %Basophils 0.9 % (0.0-1.0); %Eosinophils 5.8 % (0.0-10.0); %Monocytes 8.3 % (0.0-10.0); Anisocytosis SLIGHT = 6-15 cells (100X) (0-5/hpf); Hemoglobin 10.7 g/dL (12.0-16.0); MDiff Complete? YES; Mean Corpuscular HGB CONC 30.6 g/dL (32.0-36.0); Mean Corpuscular Hemoglobin 23.7 pg (27.0-31.0); Mean Corpuscular Volume 77.6 fl (81.0-99.0); Mean Platelet Volume 6.8 fL (7.4-10.4); Platelet Count 292 thou/uL (130-400); RBC Distribution Width 16.2 % (11.5-14.5); Red Blood Cell (RBC) Count 4.51 mill/uL (4.20-5.40); White Blood Cell (WBC) Count 10.5 thou/uL (4.8-10.8)
[2017-12-06 19:34] LABS: Anion Gap 17 mmol/L (10-20); BUN (Urea Nitrogen) 14 mg/dL (9.8-20.1); Calc. Creatinine Clearance 0 mL/min (70-130); Calcium 9.9 mg/dL (7.8-10.44); Carbon Dioxide 27 mmol/L (23-31); Chloride 102 mmol/L (98-107); Estimated GFR-MDRD 57; Glucose 120 mg/dL (80-115); Potassium 3.7 mmol/L (3.5-5.1); Sodium 142 mmol/L (136-145)
[2017-12-06 19:37] LABS: Troponin I 0.016 ng/mL (< 0.028)
--- NOTE | 2017-12-06 20:40 | RAD ---
PORTABLE CHEST: 12/06/2017 PROVIDED CLINICAL HISTORY: Chest pain. COMPARISON: 08/16/2016 FINDINGS: The cardiac and mediastinal silhouette are within normal limits. The lungs appear clear. No pleural fluid or pneumothorax apparent. IMPRESSION: No evidence for an acute cardiopulmonary process. POS: [facility]
== END 2017-12-06 20:10 | disposition home or self-care (01) ==
LOC: MADERS 18:59
DX: I10 Essential (primary) hypertension (principal); E11.9 Type 2 diabetes mellitus without complications; E78.5 Hyperlipidemia, unspecified; E78.2 Mixed hyperlipidemia; J44.9 Chronic obstructive pulmonary disease, unspecified; F17.210 Nicotine dependence, cigarettes, uncomplicated
CPT/HCPCS: 71045; 80048; 82553; 83880; 84484; 85025; 93005; 94760; 96374; J2270

== ENCOUNTER 2017-12-29 08:44 | Outpatient (CLI) | payer MEDICARE, OTHER ==
[2017-12-29 10:43] LABS: #Basophils 0.1 thou/uL (0.0-0.2); #Eosinphils 0.5 thou/uL (0.0-0.7); #Lymphocytes 3.4 thou/uL (1.20-3.40); #Monocytes 0.5 thou/uL (0.11-0.59); #Neutrophils 3.8 thou/uL (1.40-6.50); %Eosinophils 6.1 % (0.0-10.0); %Lymphocytes 41.4 % (21.0-51.0); %Monocytes 6.1 % (0.0-10.0); %Neutrophils 45.4 % (42.0-75.0); Hemoglobin 10.5 g/dL (12.0-16.0); Mean Corpuscular HGB CONC 30.5 g/dL (32.0-36.0); Mean Corpuscular Hemoglobin 23.7 pg (27.0-31.0); Mean Corpuscular Volume 77.5 fl (81.0-99.0); Platelet Count 315 thou/uL (130-400); RBC Distribution Width 15.9 % (11.5-14.5); Red Blood Cell (RBC) Count 4.41 mill/uL (4.20-5.40); White Blood Cell (WBC) Count 8.3 thou/uL (4.8-10.8)
[2017-12-29 10:44] LABS: ALT (SGPT) 9 U/L (8-55); AST (SGOT) 18 U/L (5-34); Albumin 4.2 g/dL (3.4-4.8); Alkaline Phosphatase 104 U/L (40-150); Anion Gap 15 mmol/L (10-20); BUN (Urea Nitrogen) 17 mg/dL (9.8-20.1); Bilirubin, Total 0.6 mg/dL (0.2-1.2); Calc. Creatinine Clearance 0 mL/min (70-130); Carbon Dioxide 26 mmol/L (23-31); Cardiac Risk 2.8 (Less than 4.5); Chloride 104 mmol/L (98-107); Cholesterol 154 mg/dl (< 200 Desired); Estimated GFR-MDRD 61; Globulin 3.2 g/dL (2.4-3.5); Glucose 84 mg/dL (80-115); HDL Cholesterol 56 mg/dL (>60 Neg Risk); LDL Cholesterol, Calculated 87 mg/dL; Potassium 3.9 mmol/L (3.5-5.1); Protein, Total 7.4 g/dL (6.0-8.3); Sodium 141 mmol/L (136-145); Triglycerides 56 mg/dL (Less than 150)
[2017-12-29 17:00] LABS: Hemoglobin A1c 6.1 % (4.0-6.0)
== END 2017-12-29 08:45 | disposition home or self-care (01) ==
LOC: MADLABBHPM 08:44
PROVIDERS: ATTEND Family Medicine
DX: Z11.4 Encounter for screening for human immunodeficiency virus [HIV] (principal); E11.9 Type 2 diabetes mellitus without complications; E78.5 Hyperlipidemia, unspecified; I10 Essential (primary) hypertension
CPT/HCPCS: 36415; 80053; 80061; 83036; 85025

== ENCOUNTER 2018-08-17 14:51 | Emergency (ER) | payer MEDICARE, OTHER | END 2018-08-17 16:45 | disposition home or self-care (01) | LOC: MADERS 14:51 | DX: L03.115 Cellulitis of right lower limb (principal); F17.210 Nicotine dependence, cigarettes, uncomplicated; J44.9 Chronic obstructive pulmonary disease, unspecified; E78.5 Hyperlipidemia, unspecified; E78.1 Pure hyperglyceridemia; I10 Essential (primary) hypertension; Z79.891 Long term (current) use of opiate analgesic; Z79.899 Other long term (current) drug therapy; Z79.82 Long term (current) use of aspirin | CPT/HCPCS: 99283 ==

== ENCOUNTER 2018-09-24 14:31 | Emergency (ER) | payer MEDICARE, OTHER ==
--- NOTE | 2018-09-24 15:13 | RAD ---
RADIOGRAPH CHEST 1 VIEW: HISTORY: A 63-year-old female with dyspnea. FINDINGS: There are no air space densities, pulmonary edema, pneumothorax, or cardiomegaly. The lateral costop hrenic angles are sharp. IMPRESSION: No acute cardiopulmonary findings. mary [] POS: [facility]
--- NOTE | 2018-09-29 05:44 | PQF ---
[facility] POST DISCHARGE CLINICAL DOCUMENTATION IMPROVEMENT CLARIFICATION FORM l Todays Date: 09/28/18 l Patients Name Elisa Astudillo l l Admit Date 09/24/18 l Disch Date 09/24/18 Outer Diameter Technician Name [email or web address] To be completed by Outer Diameter Technician: Present Clinical Indicators - Signs / Symptoms Results and Location in Medical Record [ ] Documentation of: [ ] [ ] Documentation of: [ ] [ ] Documentation of: [ ] [ ] Documentation of: [ ] [ ] Risks [ ] [ ] [ ] Treatment [ ] BRONCHITIS MISSING SPECIFICITY FOR BRONCHITIS WHETHER ACUTE OR CHRONIC PLEASE CLARIFY. [ ] [ ] To be completed by DO. Marlon Grimaldo The documentation in this patients record requires clarification to ensure coding compliance and accuracy. Check the appropriate box and include in your discharge summary. [ ] [ ] [ ] [ ] Please check this box if this does not apply to this patient [ ] Unable to determine [ ] Other diagnosis: Review the following information and exercise your independent professional judgment in responding to the clarification. Based upon the clinical findings, risk factors, and treatment, please clarify if you are treating one of the above probable or suspected diagnoses. Physician Signature: Date Time MTDD
== END 2018-09-24 15:30 | disposition home or self-care (01) ==
LOC: MADERS 14:31
DX: J40 Bronchitis, not specified as acute or chronic (principal); E11.9 Type 2 diabetes mellitus without complications; E78.5 Hyperlipidemia, unspecified; I10 Essential (primary) hypertension; J44.9 Chronic obstructive pulmonary disease, unspecified; F17.210 Nicotine dependence, cigarettes, uncomplicated; Z79.899 Other long term (current) drug therapy; Z79.891 Long term (current) use of opiate analgesic; Z79.82 Long term (current) use of aspirin; Z79.51 Long term (current) use of inhaled steroids
CPT/HCPCS: 71045; 87804; 93005; J7620

== ENCOUNTER 2018-09-29 19:49 | Emergency (ER) | payer MEDICARE, OTHER ==
[2018-09-29] MEDS ORDERED: Ondansetron ODT 4 MG TAB ONE (20:08)
[2018-09-29] MEDS ORDERED: Sodium Chloride For Inhalation 0.9% 3 ML NEB ONE (20:09)
--- NOTE | 2018-09-29 20:40 | RAD ---
CHEST TWO VIEWS: 09/29/18 HISTORY: Cough. COMPARISON: 09/24/18. FINDINGS: heart size is within normal limits. The lungs are clear. IMPRESSION: No acute intrathoracic disease. No evidence for pneumonia. Atherosclerosis of the aorta. Stable from prior study. POS: [facility]
[2018-09-29] MEDS ORDERED: Dexamethasone 10 MG/ML VIAL ONE (20:58)
[2018-09-29] MEDS ORDERED: HYDROcodone/Acetaminophen 10/325 mg Tablet ONE (20:58)
[2018-09-29] MEDS ORDERED: Hydrochlorothiazide 25 MG TAB ONE (20:58)
[2018-09-29] MEDS ORDERED: Azithromycin 250 MG TAB ONE (20:58)
== END 2018-09-29 21:35 | disposition home or self-care (01) ==
LOC: MADERS 19:49
DX: J18.9 Pneumonia, unspecified organism (principal); J44.1 Chronic obstructive pulmonary disease with (acute) exacerbation; I10 Essential (primary) hypertension; E11.9 Type 2 diabetes mellitus without complications; E78.5 Hyperlipidemia, unspecified; F17.210 Nicotine dependence, cigarettes, uncomplicated; Z79.899 Other long term (current) drug therapy; Z79.51 Long term (current) use of inhaled steroids; Z79.82 Long term (current) use of aspirin; Z79.84 Long term (current) use of oral hypoglycemic drugs
CPT/HCPCS: 71046; 87804; 96372; J1100; J7620; Q0162

== ENCOUNTER 2018-11-16 11:30 | Outpatient (CLI) | payer MEDICARE, OTHER ==
--- NOTE | 2018-11-16 13:06 | ULT ---
Abdominal ultrasound: 11/16/2018 COMPARISON: None HISTORY: Abdominal pain for 6 months TECHNIQUE: Multiplanar grayscale sonographic imaging of the abdomen provided. FINDINGS: The imaged IVC and aorta appear within normal limits. Portions of the pancreas are obscured by bowel gas. Visualized pancreas unremarkable. No focal liver lesion or intrahepatic biliary dilatation. Common bile duct measures approximately 2 mm, normal. Right kidney measures 10.4 cm in craniocaudal dimension and demonstrates no stone, hydronephrosis, or mass. Left kidney measures 9.1 cm in craniocaudal dimension and demonstrates no stone, hydronephrosis, or m ass. No gallbladder wall thickening or pericholecystic fluid. No gallstones are noted. Spleen measures 7.5 cm, within normal limits. IMPRESSION: Unremarkable abdominal ultrasound.
== END 2018-11-16 11:31 | disposition home or self-care (01) ==
LOC: MADULT 11:30
PROVIDERS: ATTEND Internal Medicine Gastroenterology
DX: R10.9 Unspecified abdominal pain (principal)
CPT/HCPCS: 76700

== ENCOUNTER 2019-01-09 15:26 | Emergency (ER) | payer MEDICARE, MEDICAID ==
--- NOTE | 2019-01-09 15:56 | RAD ---
EXAM: Single view of the chest HISTORY: Chest pain COMPARISON: 09/24/2018 FINDINGS: Single view of the chest shows a normal sized cardiomediastinal silhouette. There is no tracy dence of consolidation, mass, or pleural effusion. The bones are unremarkable. IMPRESSION: No evidence of acute cardiopulmonary disease
[2019-01-09 16:09] LABS: Prothrombin Time 13.5 SEC (12.0-14.7)
[2019-01-09 16:19] LABS: #Basophils 0.1 thou/uL (0.0-0.2); #Eosinphils 0.5 thou/uL (0.0-0.7); #Lymphocytes 3.1 thou/uL (1.20-3.40); #Monocytes 0.6 thou/uL (0.11-0.59); #Neutrophils 4.6 thou/uL (1.40-6.50); %Basophils 0.9 % (0.0-1.0); %Eosinophils 5.2 % (0.0-10.0); %Lymphocytes 35.2 % (21.0-51.0); %Monocytes 6.8 % (0.0-10.0); Hemoglobin 9.5 g/dL (12.0-16.0); Mean Corpuscular HGB CONC 30.3 g/dL (32.0-36.0); Mean Corpuscular Hemoglobin 22.3 pg (27.0-31.0); Mean Corpuscular Volume 73.4 fL (78.0-98.0); Mean Platelet Volume 6.3 fL (7.4-10.4); Platelet Count 323 thou/uL (130-400); RBC Distribution Width 16.9 % (11.5-14.5); Red Blood Cell (RBC) Count 4.26 mill/uL (4.20-5.40); White Blood Cell (WBC) Count 8.8 thou/uL (4.8-10.8)
[2019-01-09 16:20] LABS: ALT (SGPT) 9 U/L (8-55); AST (SGOT) 18 U/L (5-34); Albumin 4.2 g/dL (3.4-4.8); Alkaline Phosphatase 98 U/L (40-150); Anion Gap 14 mmol/L (10-20); Anisocytosis SLIGHT = 6-15 cells (100X) (0-5/hpf); BUN (Urea Nitrogen) 14 mg/dL (9.8-20.1); Bilirubin, Total 0.4 mg/dL (0.2-1.2); Calc. Creatinine Clearance 0 mL/min (70-130); Calcium 9.6 mg/dL (7.8-10.44); Carbon Dioxide 28 mmol/L (23-31); Chloride 104 mmol/L (98-107); Estimated GFR-MDRD 50; Globulin 3.3 g/dL (2.4-3.5); Glucose 95 mg/dL (80-115); Hypochromia SLIGHT = 6-15 cells (100X) (0-5/hpf); MDiff Complete? YES; Microcytosis SLIGHT = 6-15 cells (100X) (0-5/hpf); Polychromasia SLIGHT = 2-3 cells (100X) (0-2/hpf); Potassium 3.5 mmol/L (3.5-5.1); Protein, Total 7.5 g/dL (6.0-8.3); Sodium 142 mmol/L (136-145)
[2019-01-09] MEDS ORDERED: Aspirin Chewable 81 MG TAB ONE (16:52)
== END 2019-01-09 17:23 | disposition short-term general hospital (02) ==
LOC: MADERS 15:26
DX: R07.9 Chest pain, unspecified (principal); D64.9 Anemia, unspecified; I10 Essential (primary) hypertension; N28.9 Disorder of kidney and ureter, unspecified; E11.9 Type 2 diabetes mellitus without complications; E78.5 Hyperlipidemia, unspecified; J44.9 Chronic obstructive pulmonary disease, unspecified; F17.210 Nicotine dependence, cigarettes, uncomplicated; Z79.82 Long term (current) use of aspirin; Z79.51 Long term (current) use of inhaled steroids; Z79.84 Long term (current) use of oral hypoglycemic drugs; Z79.899 Other long term (current) drug therapy
CPT/HCPCS: 71045; 80053; 83880; 84484; 85025; 85610; 93005

== ENCOUNTER 2019-01-26 14:49 | Emergency (ER) | payer MEDICARE, OTHER | END 2019-01-26 16:03 | disposition home or self-care (01) | LOC: MADERS 14:49 | DX: M79.671 Pain in right foot (principal); E11.9 Type 2 diabetes mellitus without complications; F17.210 Nicotine dependence, cigarettes, uncomplicated; E78.2 Mixed hyperlipidemia; I10 Essential (primary) hypertension; J44.9 Chronic obstructive pulmonary disease, unspecified; Z79.899 Other long term (current) drug therapy; Z79.51 Long term (current) use of inhaled steroids; Z79.84 Long term (current) use of oral hypoglycemic drugs; Z79.82 Long term (current) use of aspirin | CPT/HCPCS: 99281 ==

== ENCOUNTER 2019-01-28 10:52 | Emergency (ER) | payer MEDICARE, OTHER ==
--- NOTE | 2019-01-28 11:53 | RAD ---
XR Foot Rt 3 View STANDARD INDICATION: Right foot infection COMPARISON: None. FINDINGS: Bones: No acute fracture identified. No destructive osteolytic is evident. Joints: There is scattered osteoarthrosis of the right foot. There is a bifid tibial great toe sesamo id Lisfranc alignment: Lisfranc alignment appears within normal limits. Soft tissues: There is soft tissue swelling surrounding the right great toe IMPRESSION: Soft tissue swelling of the right great toe. No radiopaque foreign body is evident. Scatt ered osteoarthrosis of the right foot. No radiographic evidence to suggest osteomyelitis.
[2019-01-28 12:00] LABS: #Basophils 0.1 thou/uL (0.0-0.2); #Eosinphils 0.4 thou/uL (0.0-0.7); #Lymphocytes 2.7 thou/uL (1.20-3.40); #Monocytes 0.6 thou/uL (0.11-0.59); %Basophils 0.8 % (0.0-1.0); %Eosinophils 4.4 % (0.0-10.0); %Monocytes 6.3 % (0.0-10.0); %Neutrophils 61.5 % (42.0-75.0); ALT (SGPT) 9 U/L (8-55); AST (SGOT) 16 U/L (5-34); Alkaline Phosphatase 90 U/L (40-150); Anion Gap 14 mmol/L (10-20); Anisocytosis MODERATE=16-30 cells (100X) (0-5/hpf); BUN (Urea Nitrogen) 13 mg/dL (9.8-20.1); Bilirubin, Total 0.4 mg/dL (0.2-1.2); Calc. Creatinine Clearance 0 mL/min (70-130); Calcium 9.6 mg/dL (7.8-10.44); Carbon Dioxide 27 mmol/L (23-31); Chloride 106 mmol/L (98-107); Estimated GFR-MDRD 63; Globulin 2.9 g/dL (2.4-3.5); Glucose 96 mg/dL (80-115); Hemoglobin 9.2 g/dL (12.0-16.0); Hypochromia MODERATE=16-30 cells (100X) (0-5/hpf); MDiff Complete? YES; Mean Corpuscular HGB CONC 30.2 g/dL (32.0-36.0); Mean Corpuscular Hemoglobin 22.7 pg (27.0-31.0); Mean Corpuscular Volume 75.3 fL (78.0-98.0); Mean Platelet Volume 6.3 fL (7.4-10.4); Platelet Count 337 thou/uL (130-400); Platelet Morphology Comment Appears Adequate; Potassium 3.8 mmol/L (3.5-5.1); Protein, Total 6.9 g/dL (6.0-8.3); RBC Distribution Width 21.3 % (11.5-14.5); Red Blood Cell (RBC) Count 4.07 mill/uL (4.20-5.40); Sodium 143 mmol/L (136-145); White Blood Cell (WBC) Count 9.8 thou/uL (4.8-10.8)
[2019-01-29 11:50] LABS: Hemoglobin A1c 5.5 % (4.0-6.0)
== END 2019-01-28 13:00 | disposition home or self-care (01) ==
LOC: MADERS 10:52
DX: L03.031 Cellulitis of right toe (principal); I10 Essential (primary) hypertension; D50.9 Iron deficiency anemia, unspecified; E11.9 Type 2 diabetes mellitus without complications; E78.2 Mixed hyperlipidemia; J44.9 Chronic obstructive pulmonary disease, unspecified; F17.210 Nicotine dependence, cigarettes, uncomplicated; Z79.82 Long term (current) use of aspirin; Z79.84 Long term (current) use of oral hypoglycemic drugs; Z79.899 Other long term (current) drug therapy
CPT/HCPCS: 36415; 80053; 83036; 85025

== ENCOUNTER 2019-05-23 10:24 | Emergency (ER) | payer MEDICARE, MEDICAID ==
[~2019-05-23 10:24] MED LIST: Sodium Chloride 0.9% 100 ML BAG ONE
[2019-05-23] MEDS ORDERED: Aspirin Chewable 81 MG TAB ONE (10:42)
[2019-05-23] MEDS ORDERED: Nitroglycerin 2% Ointment 1 INCH/1 GM Packet ONE (10:42)
[2019-05-23] MEDS ORDERED: Azithromycin 500 MG VIAL ONE (10:42)
[2019-05-23] MEDS ORDERED: methylPREDNISolone Sod Succ/PF 125 MG/2 ML VIAL ONE (10:42)
[2019-05-23] MEDS ORDERED: cefTRIAXone\\ROCEPHIN 1 GM VIAL ONE (10:42)
--- NOTE | 2019-05-23 10:44 | RAD ---
Exam: Chest one view HISTORY:Dyspnea Comparison: 01/09/2019 FINDINGS: Cardiac silhouette: Normal Aorta: Atherosclerosis Pulmonary vessels: Normal Costophrenic angles: Clear LUNGS: No masses or consolidation. Pneumothorax: None Osseous abnormalities: None IMPRESSION: No acute cardiopulmonary process. Atherosclerosis
[2019-05-23 11:21] LABS: #Basophils 0.1 thou/uL (0.0-0.2); #Eosinphils 0.7 thou/uL (0.0-0.7); #Lymphocytes 2.7 thou/uL (1.20-3.40); #Monocytes 0.5 thou/uL (0.11-0.59); #Neutrophils 6.4 thou/uL (1.40-6.50); %Basophils 1.2 % (0.0-1.0); %Eosinophils 6.7 % (0.0-10.0); %Lymphocytes 25.8 % (21.0-51.0); %Neutrophils 61.3 % (42.0-75.0); Hemoglobin 12.8 g/dL (12.0-16.0); Mean Corpuscular HGB CONC 29.2 g/dL (32.0-36.0); Mean Corpuscular Hemoglobin 25.1 pg (27.0-31.0); Mean Corpuscular Volume 85.8 fL (78.0-98.0); Mean Platelet Volume 7.1 fL (7.4-10.4); Platelet Count 235 thou/uL (130-400); RBC Distribution Width 17.7 % (11.5-14.5); Red Blood Cell (RBC) Count 5.09 mill/uL (4.20-5.40); White Blood Cell (WBC) Count 10.4 thou/uL (4.8-10.8)
[2019-05-23 11:42] LABS: Anisocytosis SLIGHT = 6-15 cells (100X) (0-5/hpf); Platelet Morphology Comment Appears Adequate
[2019-05-23 11:50] LABS: ALT (SGPT) 13 U/L (8-55); AST (SGOT) 17 U/L (5-34); Albumin 4.3 g/dL (3.4-4.8); Alkaline Phosphatase 94 U/L (40-110); Anion Gap 17 mmol/L (10-20); BUN (Urea Nitrogen) 10 mg/dL (9.8-20.1); Bilirubin, Total 0.5 mg/dL (0.2-1.2); CK (CPK) 128 U/L (29-168); Calc. Creatinine Clearance 0 mL/min (70-130); Calcium 10.3 mg/dL (7.8-10.44); Carbon Dioxide 27 mmol/L (23-31); Estimated GFR-MDRD 62; Globulin 3.1 g/dL (2.4-3.5); Glucose 104 mg/dL (80-115); Lipase 11 U/L (8-78); Protein, Total 7.4 g/dL (6.0-8.3)
[2019-05-23 12:56] LABS: Chloride 103 mmol/L (98-107); Potassium 3.5 mmol/L (3.5-5.1); Sodium 143 mmol/L (136-145)
== END 2019-05-23 12:19 | disposition short-term general hospital (02) ==
LOC: MADERS 10:24
DX: I24.9 Acute ischemic heart disease, unspecified (principal); J44.1 Chronic obstructive pulmonary disease with (acute) exacerbation; E11.9 Type 2 diabetes mellitus without complications; E78.5 Hyperlipidemia, unspecified; E78.1 Pure hyperglyceridemia; I10 Essential (primary) hypertension; F17.210 Nicotine dependence, cigarettes, uncomplicated; Z79.82 Long term (current) use of aspirin; Z79.84 Long term (current) use of oral hypoglycemic drugs; Z79.51 Long term (current) use of inhaled steroids
CPT/HCPCS: 71045; 80053; 82550; 83605; 83690; 84484; 85025; 93005; 96365; 96375; J0456; J0696; J2930; J3490; J7050; J7620

== ENCOUNTER 2019-05-27 14:06 | Emergency (ER) | payer MEDICARE, OTHER ==
--- NOTE | 2019-05-27 15:23 | RAD ---
RADIOGRAPH CHEST 1 VIEW: DATE: 05/27/2019 HISTORY: 64-year-old female with cough and dyspnea FINDINGS: There are no airspace densities, pulmonary edema, pneumothorax, or cardiomegaly. The lateral costophr enic angles are sharp. IMPRESSION: No acute cardiopulmonary findings.
[2019-05-27 15:28] LABS: ALT (SGPT) 19 U/L (8-55); AST (SGOT) 24 U/L (5-34); Albumin 4.3 g/dL (3.4-4.8); Alkaline Phosphatase 90 U/L (40-110); Anion Gap 19 mmol/L (10-20); BUN (Urea Nitrogen) 19 mg/dL (9.8-20.1); Bilirubin, Total 0.4 mg/dL (0.2-1.2); Calc. Creatinine Clearance 0 mL/min (70-130); Calcium 9.2 mg/dL (7.8-10.44); Carbon Dioxide 25 mmol/L (23-31); Chloride 102 mmol/L (98-107); Estimated GFR-MDRD 61; Globulin 3.1 g/dL (2.4-3.5); Glucose 93 mg/dL (80-115); Protein, Total 7.4 g/dL (6.0-8.3); Sodium 143 mmol/L (136-145)
[2019-05-27 15:34] LABS: #Basophils 0.3 thou/uL (0.0-0.2); #Lymphocytes 4.9 thou/uL (1.20-3.40); #Monocytes 0.8 thou/uL (0.11-0.59); #Neutrophils 7.2 thou/uL (1.40-6.50); %Eosinophils 6.8 % (0.0-10.0); %Lymphocytes 34.5 % (21.0-51.0); %Monocytes 5.9 % (0.0-10.0); %Neutrophils 50.9 % (42.0-75.0); Anisocytosis SLIGHT = 6-15 cells (100X) (0-5/hpf); Hemoglobin 14.5 g/dL (12.0-16.0); MDiff Complete? YES; Mean Corpuscular Hemoglobin 24.9 pg (27.0-31.0); Mean Corpuscular Volume 85.9 fL (78.0-98.0); Mean Platelet Volume 7.9 fL (7.4-10.4); Platelet Count 335 thou/uL (130-400); Polychromasia SLIGHT = 2-3 cells (100X) (0-2/hpf); RBC Distribution Width 17.3 % (11.5-14.5); Target Cells SLIGHT = 2-5 cells (100X) (0-1/hpf); White Blood Cell (WBC) Count 14.1 thou/uL (4.8-10.8)
[2019-05-27] MEDS ORDERED: Nitroglycerin 0.4 MG TAB 1 EACH ONE ×2 (15:35→15:37)
[2019-05-27] MEDS ORDERED: Nitroglycerin 2% Ointment 1 INCH/1 GM Packet ONE (15:59)
[2019-05-27] MEDS ORDERED: Potassium Chloride 10 MEQ TAB ONE ×2 (16:07→16:08)
--- NOTE | 2019-05-27 16:43 | CT ---
CT THORAX NONCONTRAST: DATE: 05/27/2019 HISTORY: 64-year-old female with cough and dyspnea on exertion, reports recent pneumonia. COMPARISON: none FINDINGS: The lungs are essentially clear. No pleural effusion, thoracic aortic aneurysm, or cardiomegaly. Trac hea and bilateral mainstem bronchi are patent and clear. No pleural effusion or pneumothorax. There is a 2 x 2.5 x 3 cm right adrenal nodule with density of 4HU. Mild-moderate Calcification of LAD, lef t main, RCA, and LCx. IMPRESSION: 1) no acute pulmonary findings. 2) right adrenal adenoma. 3) coronary atherosclerosis due to calcified coronary lesion.
[2019-05-27] MEDS ORDERED: Ondansetron PF 4 MG/2 ML Vial ONE (17:27)
== END 2019-05-27 17:55 | disposition left against medical advice (07) ==
LOC: MADERS 14:06
DX: J44.1 Chronic obstructive pulmonary disease with (acute) exacerbation (principal); R10.13 Epigastric pain; E87.6 Hypokalemia; R11.0 Nausea; I10 Essential (primary) hypertension; E11.9 Type 2 diabetes mellitus without complications; E78.5 Hyperlipidemia, unspecified; E78.2 Mixed hyperlipidemia; F17.210 Nicotine dependence, cigarettes, uncomplicated
CPT/HCPCS: 71045; 71250; 80053; 83605; 83880; 84484; 85025; 87804; 93005; 96374; J2405; J7620

== ENCOUNTER 2020-04-30 09:49 | Outpatient (CLI) | payer MEDICARE, OTHER ==
--- NOTE | 2020-04-30 13:31 | ULT ---
Pelvic ultrasound: 04/30/2020 COMPARISON: None HISTORY: Adnexal pain on the left for over one year, history of uterine fibroid disease TECHNIQUE: Multiplanar grayscale sonographic imaging of the pelvis obtained with transabdominal and e ndovaginal imaging FINDINGS: Evaluation of the uterus is somewhat limited secondary to shadowing from bowel gas. The uterus is estimated at 5.4 x 1.9 x 4.0 cm. There are 3 heterogeneously hypoechoic masses with per ipheral areas of shadowing suggesting peripherally calcified nichole. These lesions are associated with the uterus in include a lesion in the fundus measuring 2.5 cm, a lesion within the posterior [place] body measuring 2.4 cm, and a lesion in the region of the lower uterine segment measuring 1.5 cm. These findings suggest multiple uterine fibroids. The left ovary measures 2.4 x 1.2 x 1.0 cm and demonstrates normal blood flow without evidence for ma ss. The right ovary measures 1.5 x 1.8 x 1.4 cm and demonstrates normal blood flow without evidence for mass. No free fluid is seen in the pelvis. The endometrial stripe is difficult to definitely accurately measure secondary to the presence of [place] fibroid disease. The endometrial stripe is felt to measure approximately 4 mm in thickness, within normal limits. IMPRESSION: Findings suggesting calcified uterine fibroids as above.
== END 2020-04-30 09:50 | disposition home or self-care (01) ==
LOC: MADULT 09:49
PROVIDERS: ATTEND Family Medicine
DX: R10.2 Pelvic and perineal pain (principal)
CPT/HCPCS: 76856

== ENCOUNTER 2020-12-07 09:00 | Emergency (ER) | payer MEDICARE, OTHER | END 2020-12-07 10:53 | disposition home or self-care (01) | LOC: MADERS 09:00 | DX: S92.335A Nondisplaced fracture of third metatarsal bone, left foot, initial encounter for closed fracture (principal); I10 Essential (primary) hypertension; E11.9 Type 2 diabetes mellitus without complications; E78.5 Hyperlipidemia, unspecified; J44.9 Chronic obstructive pulmonary disease, unspecified; Z79.82 Long term (current) use of aspirin; Z79.899 Other long term (current) drug therapy; Z79.51 Long term (current) use of inhaled steroids; X50.1XXA Overexertion from prolonged static or awkward postures, initial encounter | CPT/HCPCS: 28470 ==

== ENCOUNTER 2020-12-25 19:58 | Emergency (ER) | payer MEDICARE, OTHER ==
[2020-12-25] MEDS ORDERED: Tetracaine 0.5% PF 4 ML BOT ONE (20:09)
[2020-12-25] MEDS ORDERED: Fluorescein Opthalmic Strip ONE (20:09)
[2020-12-25] MEDS ORDERED: Acetaminophen 500 MG TAB ONE (20:44)
== END 2020-12-25 21:46 | disposition home or self-care (01) ==
LOC: MADERS 19:58
DX: H10.12 Acute atopic conjunctivitis, left eye (principal); E11.9 Type 2 diabetes mellitus without complications; E78.5 Hyperlipidemia, unspecified; I10 Essential (primary) hypertension; J44.9 Chronic obstructive pulmonary disease, unspecified; Z79.82 Long term (current) use of aspirin; Z79.51 Long term (current) use of inhaled steroids; Z79.899 Other long term (current) drug therapy; Z87.891 Personal history of nicotine dependence
CPT/HCPCS: 99283

== ENCOUNTER 2021-01-15 15:02 | Emergency (ER) | payer MEDICARE, OTHER ==
[2021-01-15] MEDS ORDERED: diphenhydrAMINE 25 MG CAP ONE (15:45)
[2021-01-15] MEDS ORDERED: methylPREDNISolone Sod Succ/PF 125 MG/2 ML VIAL ONE (15:45)
== END 2021-01-15 16:17 | disposition home or self-care (01) ==
LOC: MADERS 15:02
DX: R22.0 Localized swelling, mass and lump, head (principal); T46.3X5A Adverse effect of coronary vasodilators, initial encounter; E78.5 Hyperlipidemia, unspecified; I10 Essential (primary) hypertension; E11.9 Type 2 diabetes mellitus without complications; J44.9 Chronic obstructive pulmonary disease, unspecified; Z85.3 Personal history of malignant neoplasm of breast; Z87.891 Personal history of nicotine dependence; Z79.82 Long term (current) use of aspirin; Z79.899 Other long term (current) drug therapy
CPT/HCPCS: 96372; 99283; J2930; Q0163

== ENCOUNTER 2021-01-23 12:05 | Emergency (ER) | payer MEDICARE, OTHER ==
[2021-01-23] MEDS ORDERED: diphenhydrAMINE 25 MG CAP ONE (12:30)
== END 2021-01-23 13:40 | disposition home or self-care (01) ==
LOC: MADERS 12:05
DX: R22.0 Localized swelling, mass and lump, head (principal); T46.4X5A Adverse effect of angiotensin-converting-enzyme inhibitors, initial encounter; E11.9 Type 2 diabetes mellitus without complications; E78.5 Hyperlipidemia, unspecified; I10 Essential (primary) hypertension; J44.9 Chronic obstructive pulmonary disease, unspecified; Z85.3 Personal history of malignant neoplasm of breast; Z79.82 Long term (current) use of aspirin; Z79.899 Other long term (current) drug therapy; Z87.891 Personal history of nicotine dependence
CPT/HCPCS: 96372; 99283; J1040; Q0163

== ENCOUNTER 2021-01-30 08:29 | Emergency (ER) | payer MEDICARE, OTHER ==
[2021-01-30 09:23] LABS: #Basophils 0.1 thou/uL (0.0-0.2); #Eosinphils 0.4 thou/uL (0.0-0.7); #Lymphocytes 3.8 thou/uL (1.20-3.40); #Monocytes 0.7 thou/uL (0.11-0.59); #Neutrophils 8.7 thou/uL (1.40-6.50); %Basophils 0.8 % (0.0-1.0); %Eosinophils 2.9 % (0.0-10.0); %Lymphocytes 27.8 % (21.0-51.0); %Monocytes 5.1 % (0.0-10.0); %Neutrophils 63.4 % (42.0-75.0); Hemoglobin 14.2 g/dL (12.0-16.0); Mean Corpuscular HGB CONC 30.2 g/dL (32.0-36.0); Mean Corpuscular Hemoglobin 27.1 pg (27.0-31.0); Mean Corpuscular Volume 89.7 fL (78.0-98.0); Mean Platelet Volume 7.8 fL (7.4-10.4); Platelet Count 254 thou/uL (130-400); RBC Distribution Width 14.1 % (11.5-14.5); Red Blood Cell (RBC) Count 5.24 mill/uL (4.20-5.40); White Blood Cell (WBC) Count 13.7 thou/uL (4.8-10.8)
[2021-01-30] MEDS ORDERED: diphenhydrAMINE 50 MG/ML VIAL ONE (09:24)
[2021-01-30] MEDS ORDERED: Sodium Chloride 0.9% 1,000 ML ONE (09:24)
[2021-01-30] MEDS ORDERED: Metoclopramide HCl 10 MG/2 ML VIAL ONE (09:24)
[2021-01-30] MEDS ORDERED: Sodium Chloride 0.9% 100 ML ONE (09:30)
[2021-01-30 09:37] LABS: ALT (SGPT) 18 U/L (8-55); AST (SGOT) 20 U/L (5-34); Alkaline Phosphatase 75 U/L (40-110); Anion Gap 14 mmol/L (10-20); BUN (Urea Nitrogen) 18 mg/dL (9.8-20.1); Bilirubin, Total 0.5 mg/dL (0.2-1.2); Calc. Creatinine Clearance 0 mL/min (70-130); Carbon Dioxide 29 mmol/L (23-31); Chloride 101 mmol/L (98-107); Globulin 2.9 g/dL (2.4-3.5); Glucose 145 mg/dL (80-115); Potassium 3.7 mmol/L (3.5-5.1); Protein, Total 6.9 g/dL (5.8-8.1); Sodium 140 mmol/L (136-145)
[2021-01-30] MEDS ORDERED: Hydrochlorothiazide 25 MG TAB ONE (10:44)
[2021-01-30] MEDS ORDERED: hydrALAZINE 10 MG TAB ONE (10:44)
[2021-01-30] MEDS ORDERED: Ketorolac Tromethamine 30 MG/ML VIAL ONE (10:44)
== END 2021-01-30 11:54 | disposition home or self-care (01) ==
LOC: MADERS 08:29
DX: R51.9 Headache, unspecified (principal); R11.0 Nausea; E11.9 Type 2 diabetes mellitus without complications; E78.5 Hyperlipidemia, unspecified; I10 Essential (primary) hypertension; J44.9 Chronic obstructive pulmonary disease, unspecified; Z85.3 Personal history of malignant neoplasm of breast; Z87.891 Personal history of nicotine dependence; Z79.82 Long term (current) use of aspirin; Z79.899 Other long term (current) drug therapy
CPT/HCPCS: 70450; 80053; 85025; 93005; 96365; 96375; J1200; J1885; J2765; J3490; J7050

== ENCOUNTER 2021-01-31 14:55 | Emergency (ER) | payer MEDICARE, OTHER ==
[2021-01-31] MEDS ORDERED: Aspirin Chewable 81 MG TAB ONE (15:36)
[2021-01-31 15:48] LABS: #Basophils 0.2 thou/uL (0.0-0.2); #Eosinphils 0.5 thou/uL (0.0-0.7); #Lymphocytes 3.8 thou/uL (1.20-3.40); #Monocytes 0.9 thou/uL (0.11-0.59); #Neutrophils 8.6 thou/uL (1.40-6.50); %Basophils 1.2 % (0.0-1.0); %Eosinophils 3.7 % (0.0-10.0); %Lymphocytes 27.3 % (21.0-51.0); %Monocytes 6.3 % (0.0-10.0); %Neutrophils 61.5 % (42.0-75.0); Hemoglobin 13.2 g/dL (12.0-16.0); Mean Corpuscular HGB CONC 31.2 g/dL (32.0-36.0); Mean Corpuscular Hemoglobin 27.6 pg (27.0-31.0); Mean Corpuscular Volume 88.5 fL (78.0-98.0); Mean Platelet Volume 8.3 fL (7.4-10.4); Platelet Count 255 thou/uL (130-400); RBC Distribution Width 14.2 % (11.5-14.5); Red Blood Cell (RBC) Count 4.79 mill/uL (4.20-5.40); White Blood Cell (WBC) Count 13.9 thou/uL (4.8-10.8)
[2021-01-31 16:08] LABS: ALT (SGPT) 16 U/L (8-55); AST (SGOT) 14 U/L (5-34); Albumin 3.7 g/dL (3.4-4.8); Alkaline Phosphatase 71 U/L (40-110); Anion Gap 12 mmol/L (10-20); BUN (Urea Nitrogen) 17 mg/dL (9.8-20.1); Bilirubin, Total 0.5 mg/dL (0.2-1.2); Calc. Creatinine Clearance 0 mL/min (70-130); Calcium 9.7 mg/dL (7.8-10.44); Carbon Dioxide 30 mmol/L (23-31); Chloride 104 mmol/L (98-107); Globulin 2.7 g/dL (2.4-3.5); Glucose 119 mg/dL (80-115); Magnesium 2.1 mg/dL (1.6-2.6); Potassium 3.6 mmol/L (3.5-5.1); Protein, Total 6.4 g/dL (5.8-8.1); Sodium 142 mmol/L (136-145)
== END 2021-01-31 18:58 | disposition home or self-care (01) ==
LOC: MADERS 14:55
DX: R07.9 Chest pain, unspecified (principal); E11.9 Type 2 diabetes mellitus without complications; E78.5 Hyperlipidemia, unspecified; I10 Essential (primary) hypertension; J44.9 Chronic obstructive pulmonary disease, unspecified; Z87.891 Personal history of nicotine dependence; Z79.82 Long term (current) use of aspirin; Z79.899 Other long term (current) drug therapy
CPT/HCPCS: 36415; 71045; 80053; 83735; 83880; 84484; 85025; 93005

== ENCOUNTER 2021-02-20 16:16 | Emergency (ER) | payer MEDICARE, OTHER ==
[2021-02-20] MEDS ORDERED: hydrALAZINE 10 MG TAB ONE (17:27)
== END 2021-02-20 17:43 | disposition home or self-care (01) ==
LOC: MADERS 16:16
DX: F43.0 Acute stress reaction (principal); F41.9 Anxiety disorder, unspecified; I10 Essential (primary) hypertension; E11.9 Type 2 diabetes mellitus without complications; E78.5 Hyperlipidemia, unspecified; J44.9 Chronic obstructive pulmonary disease, unspecified; Z87.891 Personal history of nicotine dependence; Z79.82 Long term (current) use of aspirin; Z79.899 Other long term (current) drug therapy
CPT/HCPCS: 99283

== ENCOUNTER 2021-02-21 16:58 | Emergency (ER) | payer MEDICARE, OTHER | END 2021-02-21 20:46 | disposition home or self-care (01) | LOC: MADERS 16:58 | DX: I10 Essential (primary) hypertension (principal); R51.9 Headache, unspecified; E11.9 Type 2 diabetes mellitus without complications; E78.5 Hyperlipidemia, unspecified; J44.9 Chronic obstructive pulmonary disease, unspecified; Z85.3 Personal history of malignant neoplasm of breast; Z87.891 Personal history of nicotine dependence; Z79.82 Long term (current) use of aspirin; Z79.899 Other long term (current) drug therapy | CPT/HCPCS: 99283 ==

== ENCOUNTER 2021-03-01 13:43 | Emergency (ER) | payer MEDICARE, OTHER ==
[2021-03-01] MEDS ORDERED: Amlodipine 5 MG TAB ONE (14:40)
== END 2021-03-01 14:39 | disposition home or self-care (01) ==
LOC: MADERS 13:43
DX: I10 Essential (primary) hypertension (principal); J44.9 Chronic obstructive pulmonary disease, unspecified; E11.9 Type 2 diabetes mellitus without complications; E78.5 Hyperlipidemia, unspecified; Z85.3 Personal history of malignant neoplasm of breast; Z87.891 Personal history of nicotine dependence; Z79.82 Long term (current) use of aspirin; Z79.899 Other long term (current) drug therapy
CPT/HCPCS: 99283

== ENCOUNTER 2021-03-14 21:14 | Emergency (ER) | payer MEDICARE, OTHER ==
[2021-03-14 21:47] LABS: Eosinophils 3 % (0-10); Hemoglobin 11.2 g/dL (12.0-16.0); Large Platelets SLIGHT; Lymphocytes 17 % (21-51); MDiff Complete? YES; Mean Corpuscular HGB CONC 30.9 g/dL (32.0-36.0); Mean Corpuscular Hemoglobin 27.3 pg (27.0-31.0); Mean Corpuscular Volume 88.3 fL (78.0-98.0); Mean Platelet Volume 8.8 fL (7.4-10.4); Monocytes 8 % (0-10); Neutrophil 72 % (42-75); Platelet Count 203 thou/uL (130-400); Platelet Morphology Comment Appears Adequate; RBC Morphology Normal; Red Blood Cell (RBC) Count 4.11 mill/uL (4.20-5.40); White Blood Cell (WBC) Count 17.8 thou/uL (4.8-10.8)
[2021-03-14 21:50] LABS: ALT (SGPT) 13 U/L (8-55); AST (SGOT) 18 U/L (5-34); Albumin 3.6 g/dL (3.4-4.8); Alkaline Phosphatase 89 U/L (40-110); Anion Gap 12 mmol/L (10-20); BUN (Urea Nitrogen) 14 mg/dL (9.8-20.1); Calc. Creatinine Clearance 0 mL/min (70-130); Calcium 9.3 mg/dL (7.8-10.44); Carbon Dioxide 30 mmol/L (23-31); Chloride 103 mmol/L (98-107); Globulin 2.7 g/dL (2.4-3.5); Glucose 158 mg/dL (80-115); Potassium 3.2 mmol/L (3.5-5.1); Protein, Total 6.3 g/dL (5.8-8.1); Sodium 142 mmol/L (136-145)
[2021-03-14] MEDS ORDERED: Morphine 4 MG/ML VIAL ONE (22:38)
[2021-03-14] MEDS ORDERED: Lactated Ringer's 1,000 ML ONE (22:39)
[2021-03-14] MEDS ORDERED: Potassium Chloride 20 MEQ TAB ONE (22:39)
[2021-03-14] MEDS ORDERED: Cyclobenzaprine 10 MG TAB ONE ×2 (22:39→22:40)
[2021-03-14] MEDS ORDERED: Aspirin 325 MG TAB ONE (22:39)
[2021-03-14] MEDS ORDERED: predniSONE 20 MG TAB ONE (22:39)
[2021-03-14 22:58] LABS: Magnesium 1.7 mg/dL (1.6-2.6)
[2021-03-15 00:15] LABS: SARS-CoV-2 NAA Rapid Test Not Detected (NotDetected)
[2021-03-15 00:58] LABS: Bilirubin Negative (Negative); Blood, Urine Negative (Negative); Clarity Clear (Clear); Glucose, Urine (Dipstick) Negative (Negative); Ketone, Urine Negative (Negative); Leukocyte Negative (Negative); Nitrite Negative (Negative); Protein, Urine (Dipstick) Negative (Neg-Trace); Urobilinogen 0.2 mg/dL (Less than 2)
== END 2021-03-15 01:54 | disposition home or self-care (01) ==
LOC: MADERS 21:14
DX: D72.829 Elevated white blood cell count, unspecified (principal); M79.10 Myalgia, unspecified site; T45.1X5A Adverse effect of antineoplastic and immunosuppressive drugs, initial encounter; Z20.822 Contact with and (suspected) exposure to COVID-19; I10 Essential (primary) hypertension; E78.5 Hyperlipidemia, unspecified; I25.2 Old myocardial infarction; Z85.3 Personal history of malignant neoplasm of breast; E11.9 Type 2 diabetes mellitus without complications; J44.9 Chronic obstructive pulmonary disease, unspecified; Z87.891 Personal history of nicotine dependence; Z79.82 Long term (current) use of aspirin; Z79.899 Other long term (current) drug therapy
CPT/HCPCS: 71045; 80053; 81003; 82550; 83605; 83735; 83880; 84484; 85025; 87040; 93005; U0002; 51701; 96374; J2270; J7120; J7512

== ENCOUNTER 2021-03-18 08:56 | Emergency (ER) | payer MEDICARE, OTHER ==
[2021-03-18] MEDS ORDERED: Ketorolac Tromethamine 30 MG/ML VIAL ONE (09:31)
[2021-03-18] MEDS ORDERED: Ondansetron PF 4 MG/2 ML Vial ONE (09:31)
[2021-03-18] MEDS ORDERED: Sodium Chloride 0.9% 1,000 ML ONE (09:31)
[2021-03-18 10:01] LABS: Hemoglobin 10.4 g/dL (12.0-16.0); Mean Corpuscular HGB CONC 31.4 g/dL (32.0-36.0); Mean Corpuscular Hemoglobin 27.5 pg (27.0-31.0); Mean Corpuscular Volume 87.6 fL (78.0-98.0); Mean Platelet Volume 8.4 fL (7.4-10.4); Platelet Count 245 thou/uL (130-400); RBC Distribution Width 14.1 % (11.5-14.5); Red Blood Cell (RBC) Count 3.77 mill/uL (4.20-5.40); White Blood Cell (WBC) Count 23.1 thou/uL (4.8-10.8)
[2021-03-18 10:10] LABS: ALT (SGPT) 16 U/L (8-55); AST (SGOT) 27 U/L (5-34); Albumin 3.5 g/dL (3.4-4.8); Alkaline Phosphatase 90 U/L (40-110); Anion Gap 13 mmol/L (10-20); BUN (Urea Nitrogen) 9 mg/dL (9.8-20.1); Bilirubin, Total 0.6 mg/dL (0.2-1.2); CK (CPK) 60 U/L (29-168); Calc. Creatinine Clearance 0 mL/min (70-130); Calcium 9.8 mg/dL (7.8-10.44); Carbon Dioxide 30 mmol/L (23-31); Chloride 101 mmol/L (98-107); Globulin 2.8 g/dL (2.4-3.5); Glucose 112 mg/dL (80-115); Potassium 3.4 mmol/L (3.5-5.1); Protein, Total 6.3 g/dL (5.8-8.1); Sodium 141 mmol/L (136-145)
[2021-03-18 10:37] LABS: Bilirubin Small (Negative); Blood, Urine Negative (Negative); Clarity Clear (Clear); Glucose, Urine (Dipstick) Negative (Negative); Ketone, Urine Negative (Negative); Leukocyte Negative (Negative); Nitrite Negative (Negative); Protein, Urine (Dipstick) Negative (Neg-Trace); Urobilinogen 0.2 mg/dL (Less than 2); pH, Urine 5.5 (5.0-9.0)
[2021-03-18 10:50] LABS: Band 19 % (5-11); Hypochromia SLIGHT = 6-15 cells (100X) (0-5/hpf); Large Platelets SLIGHT; Lymphocytes 22 % (21-51); MDiff Complete? YES; Monocytes 9 % (0-10); Myelocyte 3 % (0-0); Neutrophil 45 % (42-75); Platelet Morphology Comment Appears Adequate; Reactive Lymphocytes 2 % (0-10)
== END 2021-03-18 13:47 | disposition home or self-care (01) ==
LOC: MADERS 08:56
DX: E86.0 Dehydration (principal); R53.1 Weakness; E11.9 Type 2 diabetes mellitus without complications; E78.5 Hyperlipidemia, unspecified; I10 Essential (primary) hypertension; Z85.3 Personal history of malignant neoplasm of breast; Z79.899 Other long term (current) drug therapy; Z79.82 Long term (current) use of aspirin; Z87.891 Personal history of nicotine dependence
CPT/HCPCS: 51701; 71045; 80053; 81003; 82550; 83605; 83880; 84484; 85025; 93005; 94760; 96374; 96375; J1885; J2405; J7050

== ENCOUNTER 2021-04-16 14:01 | Emergency (ER) | payer MEDICARE, OTHER ==
[2021-04-16 15:40] LABS: #Basophils 0.3 thou/uL (0.0-0.2); #Eosinphils 0.1 thou/uL (0.0-0.7); #Lymphocytes 2.4 thou/uL (1.20-3.40); #Monocytes 1.2 thou/uL (0.11-0.59); #Neutrophils 22.9 thou/uL (1.40-6.50); %Eosinophils 0.3 % (0.0-10.0); %Monocytes 4.3 % (0.0-10.0); %Neutrophils 85.5 % (42.0-75.0); Hemoglobin 8.2 g/dL (12.0-16.0); Mean Corpuscular HGB CONC 30.3 g/dL (32.0-36.0); Mean Corpuscular Hemoglobin 26.8 pg (27.0-31.0); Mean Corpuscular Volume 88.4 fL (78.0-98.0); Mean Platelet Volume 6.3 fL (7.4-10.4); Platelet Count 220 thou/uL (130-400); RBC Distribution Width 16.3 % (11.5-14.5); Red Blood Cell (RBC) Count 3.05 mill/uL (4.20-5.40); White Blood Cell (WBC) Count 26.8 thou/uL (4.8-10.8)
[2021-04-16 16:00] LABS: ALT (SGPT) 15 U/L (8-55); AST (SGOT) 21 U/L (5-34); Albumin 3.6 g/dL (3.4-4.8); Alkaline Phosphatase 87 U/L (40-110); Anion Gap 17 mmol/L (10-20); BUN (Urea Nitrogen) 10 mg/dL (9.8-20.1); Bilirubin, Total 1.1 mg/dL (0.2-1.2); Calc. Creatinine Clearance 0 mL/min (70-130); Calcium 9.8 mg/dL (7.8-10.44); Carbon Dioxide 26 mmol/L (23-31); Chloride 101 mmol/L (98-107); Globulin 2.8 g/dL (2.4-3.5); Glucose 113 mg/dL (80-115); Lipase 7 U/L (8-78); Magnesium 2.1 mg/dL (1.6-2.6); Potassium 3.9 mmol/L (3.5-5.1); Protein, Total 6.4 g/dL (5.8-8.1); Sodium 140 mmol/L (136-145)
[2021-04-16] MEDS ORDERED: Aspirin Chewable 81 MG TAB ONE (16:05)
[2021-04-16] MEDS ORDERED: Lactated Ringer's 1,000 ML ONE (16:05)
[2021-04-16] MEDS ORDERED: Morphine 4 MG/ML VIAL ONE ×2 (16:05→23:12)
[2021-04-16] MEDS ORDERED: Ondansetron PF 4 MG/2 ML Vial ONE (16:05)
[2021-04-16 20:51] LABS: Troponin I 0.011 ng/mL (< 0.028)
[2021-04-16 21:19] LABS: SARS-CoV-2 NAA Rapid Test Not Detected (NotDetected)
[2021-04-16] MEDS ORDERED: Enoxaparin Sodium 60 MG/0.6 ML SYRINGE ONE (23:12)
[2021-04-17] MEDS ORDERED: Morphine 4 MG/ML VIAL ONE (06:46)
[2021-04-17 08:25] LABS: #Basophils 0.1 thou/uL (0.0-0.2); #Monocytes 1.1 thou/uL (0.11-0.59); %Basophils 0.5 % (0.0-1.0); %Eosinophils 0.2 % (0.0-10.0); %Lymphocytes 8.7 % (21.0-51.0); %Monocytes 4.6 % (0.0-10.0); Hemoglobin 7.4 g/dL (12.0-16.0); Mean Corpuscular HGB CONC 30.6 g/dL (32.0-36.0); Mean Corpuscular Hemoglobin 26.9 pg (27.0-31.0); Mean Corpuscular Volume 87.8 fL (78.0-98.0); Platelet Count 190 thou/uL (130-400); RBC Distribution Width 15.5 % (11.5-14.5); Red Blood Cell (RBC) Count 2.76 mill/uL (4.20-5.40); White Blood Cell (WBC) Count 23.3 thou/uL (4.8-10.8)
== END 2021-04-17 13:05 | disposition short-term general hospital (02) ==
LOC: MADERS 14:01
DX: K52.9 Noninfective gastroenteritis and colitis, unspecified (principal); R09.02 Hypoxemia; R07.89 Other chest pain; D72.829 Elevated white blood cell count, unspecified; C50.912 Malignant neoplasm of unspecified site of left female breast; Z20.822 Contact with and (suspected) exposure to COVID-19; E11.9 Type 2 diabetes mellitus without complications; E78.5 Hyperlipidemia, unspecified; I10 Essential (primary) hypertension; J44.9 Chronic obstructive pulmonary disease, unspecified; Z79.82 Long term (current) use of aspirin; Z79.899 Other long term (current) drug therapy
CPT/HCPCS: 36415; 71045; 74177; 80053; 83605; 83690; 83735; 84484; 85025; 87040; 93005; 96372; 96374; 96375; 96376; J1650; J2270; J2405; J7120; U0002

== ENCOUNTER 2021-07-08 12:20 | Emergency (ER) | payer MEDICARE, OTHER ==
[2021-07-08] MEDS ORDERED: Azithromycin 250 MG TAB ONE (13:16)
[2021-07-09 13:26] LABS: SARS-CoV-2 PCR by NAA Not Detected (NotDetected)
== END 2021-07-08 13:22 | disposition home or self-care (01) ==
LOC: MADERS 12:20
DX: J06.9 Acute upper respiratory infection, unspecified (principal); E78.5 Hyperlipidemia, unspecified; I10 Essential (primary) hypertension; E11.9 Type 2 diabetes mellitus without complications; J44.9 Chronic obstructive pulmonary disease, unspecified; Z87.891 Personal history of nicotine dependence; Z20.822 Contact with and (suspected) exposure to COVID-19
CPT/HCPCS: 71045; U0003; U0005

== ENCOUNTER 2021-07-29 10:14 | Outpatient (CLI) | payer MEDICARE, MEDICAID ==
[2021-07-29 11:04] LABS: #Basophils 0.1 thou/uL (0.0-0.2); #Lymphocytes 2.5 thou/uL (1.20-3.40); #Monocytes 0.8 thou/uL (0.11-0.59); #Neutrophils 12.1 thou/uL (1.40-6.50); %Basophils 0.7 % (0.0-1.0); %Eosinophils 0.3 % (0.0-10.0); %Lymphocytes 15.7 % (21.0-51.0); %Monocytes 5.4 % (0.0-10.0); %Neutrophils 77.9 % (42.0-75.0); Hemoglobin 11.2 g/dL (12.0-16.0); Mean Corpuscular Hemoglobin 26.6 pg (27.0-31.0); Mean Corpuscular Volume 88.9 fL (78.0-98.0); Mean Platelet Volume 5.9 fL (7.4-10.4); Platelet Count 238 thou/uL (130-400); RBC Distribution Width 22.1 % (11.5-14.5); Red Blood Cell (RBC) Count 4.19 mill/uL (4.20-5.40); White Blood Cell (WBC) Count 15.6 thou/uL (4.8-10.8)
[2021-07-29 11:13] LABS: Anisocytosis SLIGHT = 6-15 cells (100X) (0-5/hpf); Platelet Morphology Comment Appears Adequate
[2021-07-29 11:30] LABS: ALT (SGPT) 8 U/L (8-55); AST (SGOT) 15 U/L (5-34); Albumin 3.6 g/dL (3.4-4.8); Alkaline Phosphatase 86 U/L (40-110); Anion Gap 14 mmol/L (10-20); BUN (Urea Nitrogen) 7 mg/dL (9.8-20.1); Bilirubin, Total 0.5 mg/dL (0.2-1.2); Calc. Creatinine Clearance 0 mL/min (70-130); Calcium 9.8 mg/dL (7.8-10.44); Carbon Dioxide 30 mmol/L (23-31); Chloride 103 mmol/L (98-107); Cholesterol 160 mg/dl (< 200 Desired); Globulin 2.5 g/dL (2.4-3.5); Glucose 99 mg/dL (80-115); HDL Cholesterol 32 mg/dL (>60 Neg Risk); LDL Cholesterol, Calculated 91 mg/dL; Protein, Total 6.1 g/dL (5.8-8.1); Sodium 144 mmol/L (136-145); Triglycerides 186 mg/dL (Less than 150)
[2021-07-29 11:39] LABS: CKMB 0.7 ng/mL (0-6.6); Troponin I 0.011 ng/mL (< 0.028)
[2021-07-29 11:50] LABS: Thyroid Stimulating Hormone 3.8985 uIU/mL (0.35-4.94)
[2021-07-29 16:54] LABS: Ferritin 737.48 ng/mL (10-291); Free T4 (Free Thyroxine) 0.96 ng/dL (0.70-1.48)
== END 2021-07-29 10:15 | disposition home or self-care (01) ==
LOC: MADLAB 10:14 → MADRAD 10:15
PROVIDERS: ATTEND Family Medicine
DX: I11.0 Hypertensive heart disease with heart failure (principal); I50.30 Unspecified diastolic (congestive) heart failure; J44.9 Chronic obstructive pulmonary disease, unspecified; R60.0 Localized edema; R06.09 Other forms of dyspnea; E78.5 Hyperlipidemia, unspecified; D64.9 Anemia, unspecified
CPT/HCPCS: 36415; 71046; 80053; 80061; 82553; 82728; 83880; 84439; 84443; 84481; 84484; 85025; 93005; 93010

== ENCOUNTER 2021-08-31 12:32 | Emergency (ER) | payer MEDICARE, OTHER ==
[2021-08-31 14:50] LABS: #Basophils 0.1 thou/uL (0.0-0.2); #Eosinphils 0.3 thou/uL (0.0-0.7); #Monocytes 0.4 thou/uL (0.11-0.59); %Eosinophils 5.4 % (0.0-10.0); %Lymphocytes 34.9 % (21.0-51.0); %Monocytes 6.6 % (0.0-10.0); %Neutrophils 52.2 % (42.0-75.0); Hemoglobin 11.9 g/dL (12.0-16.0); Mean Corpuscular HGB CONC 30.6 g/dL (32.0-36.0); Mean Corpuscular Hemoglobin 27.9 pg (27.0-31.0); Mean Corpuscular Volume 91.1 fL (78.0-98.0); Mean Platelet Volume 5.6 fL (7.4-10.4); Platelet Count 238 thou/uL (130-400); Red Blood Cell (RBC) Count 4.28 mill/uL (4.20-5.40); White Blood Cell (WBC) Count 5.8 thou/uL (4.8-10.8)
[2021-08-31 15:05] LABS: ALT (SGPT) Less than 7 U/L (8-55); AST (SGOT) 15 U/L (5-34); Albumin 3.7 g/dL (3.4-4.8); Alkaline Phosphatase 135 U/L (40-110); Anion Gap 14 mmol/L (10-20); BUN (Urea Nitrogen) 15 mg/dL (9.8-20.1); Bilirubin, Total 0.6 mg/dL (0.2-1.2); Calc. Creatinine Clearance 0 mL/min (70-130); Calcium 9.7 mg/dL (7.8-10.44); Carbon Dioxide 27 mmol/L (23-31); Chloride 107 mmol/L (98-107); Globulin 2.7 g/dL (2.4-3.5); Glucose 98 mg/dL (80-115); Potassium 3.8 mmol/L (3.5-5.1); Protein, Total 6.4 g/dL (5.8-8.1); Sodium 144 mmol/L (136-145)
[2021-08-31] MEDS ORDERED: Furosemide 40 MG/4 ML VIAL ONE (16:01)
== END 2021-08-31 16:35 | disposition short-term general hospital (02) ==
LOC: MADERS 12:32
DX: M79.89 Other specified soft tissue disorders (principal); R79.1 Abnormal coagulation profile; R00.1 Bradycardia, unspecified; I10 Essential (primary) hypertension; E11.9 Type 2 diabetes mellitus without complications; E78.5 Hyperlipidemia, unspecified; J45.909 Unspecified asthma, uncomplicated; Z85.3 Personal history of malignant neoplasm of breast; Z87.891 Personal history of nicotine dependence
CPT/HCPCS: 71045; 80053; 83880; 84484; 85025; 85379; 93005; 96374; J1940

== ENCOUNTER 2021-09-08 14:50 | Outpatient (CLI) | payer MEDICARE, MEDICAID ==
[2021-09-08 15:33] LABS: Anion Gap 13 mmol/L (10-20); BUN (Urea Nitrogen) 16 mg/dL (9.8-20.1); Calc. Creatinine Clearance 0 mL/min (70-130); Calcium 10.3 mg/dL (7.8-10.44); Carbon Dioxide 29 mmol/L (23-31); Chloride 104 mmol/L (98-107); Glucose 119 mg/dL (80-115); Potassium 3.7 mmol/L (3.5-5.1); Sodium 142 mmol/L (136-145)
[2021-09-09 06:33] LABS: Free T4 (Free Thyroxine) 0.9 ng/dL (0.70-1.48)
== END 2021-09-08 14:51 | disposition home or self-care (01) ==
LOC: MADLAB 14:50
PROVIDERS: ATTEND Family Medicine
DX: R60.0 Localized edema (principal)
CPT/HCPCS: 36415; 80048; 84439; 84443; 84481

== ENCOUNTER 2021-11-16 15:06 | Outpatient (CLI) | payer MEDICARE, MEDICAID | END 2021-11-16 15:07 | disposition home or self-care (01) | LOC: MADRAD 15:06 | PROVIDERS: ATTEND Family Medicine | DX: M79.671 Pain in right foot (principal); M19.071 Primary osteoarthritis, right ankle and foot; M79.89 Other specified soft tissue disorders; Z98.890 Other specified postprocedural states ==

== ENCOUNTER 2022-01-06 14:15 | Outpatient (CLI) | payer MEDICARE, OTHER | END 2022-01-06 14:16 | disposition home or self-care (01) | LOC: MADLAB 14:15 → MADCT 14:16 | PROVIDERS: ATTEND Family Medicine | DX: R51.9 Headache, unspecified (principal); C50.912 Malignant neoplasm of unspecified site of left female breast; I67.82 Cerebral ischemia | CPT/HCPCS: 70450 ==

== ENCOUNTER 2022-03-15 14:54 | Emergency (ER) | payer MEDICARE, OTHER | END 2022-03-15 15:37 | disposition home or self-care (01) | LOC: MADERS 14:54 | DX: U07.1 COVID-19 (principal); J06.9 Acute upper respiratory infection, unspecified; I10 Essential (primary) hypertension; E11.9 Type 2 diabetes mellitus without complications; E78.5 Hyperlipidemia, unspecified; J44.9 Chronic obstructive pulmonary disease, unspecified; Z87.891 Personal history of nicotine dependence; Z85.3 Personal history of malignant neoplasm of breast | CPT/HCPCS: 99283; U0003; U0005 ==

== ENCOUNTER 2022-09-22 18:22 | Emergency (ER) | payer MEDICARE, OTHER ==
[2022-09-22] MEDS ORDERED: Boostrix 0.5 ML (Tdap) VIAL (>/=7 yrs of age) ONE (21:26)
== END 2022-09-22 22:22 | disposition home or self-care (01) ==
LOC: MADERS 18:22
DX: S61.215A Laceration without foreign body of left ring finger without damage to nail, initial encounter (principal); E11.9 Type 2 diabetes mellitus without complications; E78.5 Hyperlipidemia, unspecified; I10 Essential (primary) hypertension; J44.9 Chronic obstructive pulmonary disease, unspecified; Z87.891 Personal history of nicotine dependence; Z79.899 Other long term (current) drug therapy; Z23 Encounter for immunization; Z79.82 Long term (current) use of aspirin; W26.8XXA Contact with other sharp object(s), not elsewhere classified, initial encounter
CPT/HCPCS: 12001; 90471; 90715

== ENCOUNTER 2023-04-02 13:06 | Emergency (ER) | payer OTHER, MEDICAID ==
[2023-04-02] MEDS ORDERED: cefTRIAXone (ROCEPHIN) 2 GM VIAL ONE (14:15)
[2023-04-02] MEDS ORDERED: Sodium Chloride 0.9% 250 ML 250 ML ONE (14:15)
[2023-04-02] MEDS ORDERED: methylPREDNISolone Sod Succ/PF 125 MG/2 ML VIAL ONE (14:15)
[2023-04-02] MEDS ORDERED: Azithromycin 500 MG VIAL ONE (14:15)
[2023-04-02] MEDS ORDERED: Sodium Chloride 0.9% 100 ML ONE (14:15)
[2023-04-02] MEDS ORDERED: Aspirin Chewable 81 MG TAB ONE (14:15)
[2023-04-02] MEDS ORDERED: Albuterol 200 PUFF (6.7GM INHALER) ONE (14:16)
[2023-04-02 14:19] LABS: Anisocytosis SLIGHT = 6-15 cells (100X) (0-5/hpf); Band 14 % (5-11); Eosinophils 3 % (0-10); Hematocrit 35.3 % (36.0-47.0); Hemoglobin 11.1 g/dL (12.0-16.0); Hypochromia SLIGHT = 6-15 cells (100X) (0-5/hpf); Lymphocytes 17 % (21-51); MDiff Complete? YES; Mean Corpuscular HGB CONC 31.6 g/dL (32.0-36.0); Mean Corpuscular Hemoglobin 26.7 pg (27.0-31.0); Mean Corpuscular Volume 84.6 fl (78.0-98.0); Mean Platelet Volume 7.8 fL (7.4-10.4); Monocytes 7 % (0-10); Neutrophil 59 % (42-75); Platelet Adequacy Comment Appears Adequate; Platelet Count 229 10x3/uL (130-400); RBC Distribution Width 17.2 % (11.5-14.5); Red Blood Cell (RBC) Count 4.17 mill/uL (4.20-5.40); White Blood Cell (WBC) Count 9.5 10x3/uL (4.8-10.8)
[2023-04-02 14:24] LABS: ALT (SGPT) 12 U/L (8-55); AST (SGOT) 20 U/L (5-34); Alkaline Phosphatase 129 U/L (40-110); Anion Gap 16 mmol/L (10-20); BUN (Urea Nitrogen) 15 mg/dL (9.8-20.1); Bilirubin, Total 0.4 mg/dL (0.2-1.2); Calc. Creatinine Clearance 0 mL/min (70-130); Calcium 10.4 mg/dL (7.8-10.44); Carbon Dioxide 24 mmol/L (23-31); Chloride 106 mmol/L (98-107); Estimated GFR 63; Globulin 3.2 g/dL (2.4-3.5); Glucose 97 mg/dL (80-115); Potassium 3.9 mmol/L (3.5-5.1); Protein, Total 7.2 g/dL (5.8-8.1); Sodium 142 mmol/L (136-145); Troponin I 0.019 ng/mL (< 0.028)
== END 2023-04-02 18:00 | disposition home or self-care (01) ==
LOC: MADERS 13:06
DX: J44.1 Chronic obstructive pulmonary disease with (acute) exacerbation (principal); H61.22 Impacted cerumen, left ear; E11.9 Type 2 diabetes mellitus without complications; E78.5 Hyperlipidemia, unspecified; I10 Essential (primary) hypertension; Z87.891 Personal history of nicotine dependence; Z79.899 Other long term (current) drug therapy; Z79.82 Long term (current) use of aspirin
CPT/HCPCS: 71045; 80053; 83605; 84484 ×2; 85025; 87040; 87804 ×2; 93005; 94760; J0456; 36415; 96365; 96367; 96375; J0696; J2930; J3490; J7050

== ENCOUNTER 2023-04-06 18:00 | Emergency (ER) | payer OTHER, MEDICAID ==
[2023-04-06] MEDS ORDERED: Ibuprofen 600 MG TAB ONE (18:52)
[2023-04-06] MEDS ORDERED: Ipratropium/Albuterol 3 ML NEB ONE (18:52)
[2023-04-06] MEDS ORDERED: predniSONE 20 MG TAB ONE (18:52)
== END 2023-04-06 19:44 | disposition home or self-care (01) ==
LOC: MADERS 18:00
DX: J44.1 Chronic obstructive pulmonary disease with (acute) exacerbation (principal); E11.9 Type 2 diabetes mellitus without complications; I10 Essential (primary) hypertension; E78.5 Hyperlipidemia, unspecified; Z87.891 Personal history of nicotine dependence; Z79.899 Other long term (current) drug therapy; Z79.82 Long term (current) use of aspirin
CPT/HCPCS: J7512; J7620

== ENCOUNTER 2024-03-20 13:35 | Emergency (ER) | payer OTHER ==
[2024-03-20] MEDS ORDERED: Amoxicillin/Potassium Clav 875 MG TAB ONE (16:13)
== END 2024-03-20 16:17 | disposition home or self-care (01) ==
LOC: MADERS 13:35
DX: K08.89 Other specified disorders of teeth and supporting structures (principal); I10 Essential (primary) hypertension; E78.5 Hyperlipidemia, unspecified; J44.9 Chronic obstructive pulmonary disease, unspecified
CPT/HCPCS: 99282

== ENCOUNTER 2024-04-26 15:52 | Emergency (ER) | payer OTHER ==
[2024-04-26] MEDS ORDERED: Ibuprofen 800 MG TAB ONE (16:06)
== END 2024-04-26 16:12 | disposition home or self-care (01) ==
LOC: MADERS 15:52
DX: R51.9 Headache, unspecified (principal); K08.89 Other specified disorders of teeth and supporting structures; I10 Essential (primary) hypertension; E11.42 Type 2 diabetes mellitus with diabetic polyneuropathy; J44.9 Chronic obstructive pulmonary disease, unspecified; Z55.6 Problems related to health literacy; Z87.891 Personal history of nicotine dependence
CPT/HCPCS: 99283

== ENCOUNTER 2024-07-08 11:00 | Emergency (ER) | payer OTHER, MEDICAID ==
[2024-07-08 11:42] LABS: Hematocrit 47.8 % (36.0-47.0); Hemoglobin 14.1 g/dL (12.0-16.0); Mean Corpuscular HGB CONC 29.5 g/dL (32.0-36.0); Mean Corpuscular Hemoglobin 26.9 pg (27.0-31.0); Mean Corpuscular Volume 91.4 fl (78.0-98.0); Platelet Count 247 10x3/uL (130-400); RBC Distribution Width 14.5 % (11.5-14.5); Red Blood Cell (RBC) Count 5.23 mill/uL (4.20-5.40); White Blood Cell (WBC) Count 9.3 10x3/uL (4.8-10.8)
[2024-07-08 11:49] LABS: ALT (SGPT) 20 U/L (8-55); AST (SGOT) 29 U/L (5-34); Albumin 3.7 g/dL (3.4-4.8); Alkaline Phosphatase 108 U/L (40-110); Anion Gap 15 mmol/L (10-20); BUN (Urea Nitrogen) 16 mg/dL (9.8-20.1); Bilirubin, Total 0.7 mg/dL (0.2-1.2); Calc. Creatinine Clearance 0 mL/min (70-130); Calcium 9.7 mg/dL (7.8-10.44); Carbon Dioxide 24 mmol/L (23-31); Chloride 105 mmol/L (98-107); Estimated GFR 51; Globulin 3.3 g/dL (2.4-3.5); Glucose 101 mg/dL (80-115); Potassium 4.4 mmol/L (3.5-5.1); Sodium 140 mmol/L (136-145)
[2024-07-08 12:00] LABS: Eosinophils 9 % (0-10); Lymphocytes 21 % (21-51); MDiff Complete? YES; Monocytes 4 % (0-10); Neutrophil 64 % (42-75); Platelet Adequacy Comment Appears Adequate
[2024-07-08] MEDS ORDERED: Albuterol 200 PUFF (6.7GM INHALER) ONE (12:06)
[2024-07-08] MEDS ORDERED: predniSONE 20 MG TAB ONE (12:07)
== END 2024-07-08 12:20 | disposition home or self-care (01) ==
LOC: MADERS 11:00
DX: J45.901 Unspecified asthma with (acute) exacerbation (principal); E11.9 Type 2 diabetes mellitus without complications; E78.5 Hyperlipidemia, unspecified; I10 Essential (primary) hypertension; Z79.899 Other long term (current) drug therapy
CPT/HCPCS: 71046; 83735; 85025; J7512

== ENCOUNTER 2024-09-11 17:50 | Emergency (ER) | payer OTHER, MEDICAID ==
[2024-09-11] MEDS ORDERED: Lidocaine Viscous Sol 2% 15 ml UD Cup ONE (18:34)
== END 2024-09-11 18:45 | disposition home or self-care (01) ==
LOC: MADERS 17:50
DX: R13.10 Dysphagia, unspecified (principal); I10 Essential (primary) hypertension; E11.42 Type 2 diabetes mellitus with diabetic polyneuropathy
CPT/HCPCS: 87081; 87428; 87430; 99284

== ENCOUNTER 2025-03-16 14:08 | Emergency (ER) | payer OTHER ==
[2025-03-16] MEDS ORDERED: Aspirin Chewable 81 MG TAB ONE (15:44)
[2025-03-16] MEDS ORDERED: Nitroglycerin 0.4 MG TAB 1 EACH ONE (15:44)
[2025-03-16 15:52] LABS: ALT (SGPT) 7 U/L (Less than 34); AST (SGOT) 20 U/L (11-34); Albumin 3.9 g/dL (3.1-4.5); Alkaline Phosphatase 113 U/L (40-110); Anion Gap 15 mmol/L (10-20); BUN (Urea Nitrogen) 16 mg/dL (9.8-20.1); Bilirubin, Total 0.5 mg/dL (0.3-1.2); Calc. Creatinine Clearance 0 mL/min (70-130); Calcium 10.0 mg/dL (7.8-10.44); Carbon Dioxide 26 mmol/L (23-31); Chloride 105 mmol/L (98-107); Globulin 3.4 g/dL (2.4-3.5); Glucose 129 mg/dL (83-110); Hematocrit 45.9 % (36.0-47.0); Hemoglobin 14.1 g/dL (12.0-16.0); MDiff Complete? YES; Mean Corpuscular Hemoglobin 27.3 pg (27.0-31.0); Mean Corpuscular Volume 88.8 fl (78.0-98.0); Platelet Adequacy Comment Appears Adequate; Platelet Count 280 10x3/uL (130-400); Potassium 3.6 mmol/L (3.5-5.1); Red Blood Cell (RBC) Count 5.17 mill/uL (4.20-5.40); Sodium 142 mmol/L (136-145); White Blood Cell (WBC) Count 9.3 10x3/uL (4.8-10.8)
[2025-03-16 15:53] LABS: Troponin I 0.015 ng/mL (< 0.028)
[2025-03-16] MEDS ORDERED: Nitroglycerin 2% Ointment 1 INCH/1 GM Packet ONE (16:56)
[2025-03-16] MEDS ORDERED: Enoxaparin 80 MG (0.8 mL) SYRINGE ONE (16:57)
== END 2025-03-16 17:39 | disposition short-term general hospital (02) ==
LOC: MADERS 14:08
DX: I20.0 Unstable angina (principal); R00.1 Bradycardia, unspecified; I10 Essential (primary) hypertension; E78.5 Hyperlipidemia, unspecified; J45.909 Unspecified asthma, uncomplicated; J44.9 Chronic obstructive pulmonary disease, unspecified; E11.42 Type 2 diabetes mellitus with diabetic polyneuropathy; Z79.51 Long term (current) use of inhaled steroids; Z79.82 Long term (current) use of aspirin; Z79.899 Other long term (current) drug therapy
CPT/HCPCS: 71046; 80053; 84484; 85025; 93005; 94760; J1650; 96372